=== PATIENT | female | born 1945 | race Caucasian/White ===

== ENCOUNTER 2017-09-01 09:08 | Emergency (ER) | payer MEDICARE ==
[~2017-09-01] VITALS: Ht 160 cm; Wt 90.7 kg
[~2017-09-01 09:08] MED LIST: AMLODIPINE BES2.5 MG PO; AMLODIPINE-ATO1 EAC8; ANASTROZOLE1 MG PO; ATARAX; LEVOTHYROXINE300 MCG PO; MEDROL4 MG/DOSE-; NORCO 5-325 TA1 EACH PO; PRAMIPEXOLE D0.25 MG PO; RAMIPRIL5 MG PO; TOPIRAMATE50 MG PO; TRAMADOL-ACETAMI1 EA PO; ULTRAM50 MG PO
[2017-09-01] MEDS ORDERED: HYDROCODONE/APAP 5MG-325MG TAB PO STA (09:25)
[2017-09-01] MEDS ORDERED: DIAZEPAM INJ 5 MG/ML 2 ML IM ONE (09:30)
== END 2017-09-01 09:53 | disposition home or self-care (01) ==
LOC: FSED 09:08
DX: S46.812A Strain of other muscles, fascia and tendons at shoulder and upper arm level, left arm, initial encounter (principal); M54.6 Pain in thoracic spine; E07.9 Disorder of thyroid, unspecified; Z85.89 Personal history of malignant neoplasm of other organs and systems
CPT/HCPCS: 99284; J3360

== ENCOUNTER → 2017-10-05 | Day surgery (SDC) | payer MEDICARE ==
[2017-10-03 13:40] LABS: BASOPHILS % 0.6 % (0.0-1.0); EOSINOPHILS # (AUTO) 0.5 (0.0-0.4); EOSINOPHILS % 9.4 % (0.0-6.0); HEMATOCRIT 37.7 % (34.2-44.1); HEMOGLOBIN 11.7 g/dL (12.0-16.0); LYMPHOCYTES # (AUTO) 1.2 (1.0-3.2); LYMPHOCYTES % 24.3 % (18.0-39.1); MEAN CORPUSCULAR HEMOGLOBIN 28.4 pg (28-32); MEAN CORPUSCULAR VOLUME 91.5 fL (81-99); MONOCYTES # (AUTO) 0.5 (0.2-0.8); NEUTROPHILS # (AUTO) 2.8 (2.1-6.9); NEUTROPHILS % 56.5 % (38.7-80.0); PLATELET COUNT 155 x10e3/uL (140-360); RED BLOOD COUNT 4.12 x10e6/uL (3.6-5.1); RED CELL DISTRIBUTION WIDTH 14.6 % (11.7-14.4)
[~2017-10-05] MED LIST changes: +BIOTIN PO; +CITRACAL + D E1 EACH PO; +FENTANYL CITRATE/PF 100MCG/2 ML INJ ONE; +IRON PO; +LIDOCAINE HCL 1% 30ML-PF VIAL ONE; +LIDOCAINE HCL 2% LOCAL INJ 5 ML SDV VIAL INJ ONE; +METOPROLOL SUCC25 MG PO; +MIDAZOLAM HCL 2 MG/2 ML VIAL ONE; +MULTIVITAMINS1 EAC8 PO; +PROPOFOL IV EMULSION 10 MG/ML 20 ML VIAL ONE; +SERTRALINE HCL50 MG PO; +TRIAMCINOLONE ACET 40 MG/ML VIAL ONE
== END | disposition home or self-care (01) ==
LOC: OR 05:02
PROVIDERS: ATTEND Physical Medicine & Rehabilitation Pain Medicine
DX: M46.1 Sacroiliitis, not elsewhere classified (principal); M47.27 Other spondylosis with radiculopathy, lumbosacral region; M48.061 Spinal stenosis, lumbar region without neurogenic claudication; M54.12 Radiculopathy, cervical region; I10 Essential (primary) hypertension; I49.3 Ventricular premature depolarization; G47.33 Obstructive sleep apnea (adult) (pediatric); F41.9 Anxiety disorder, unspecified; K44.9 Diaphragmatic hernia without obstruction or gangrene; M19.90 Unspecified osteoarthritis, unspecified site; I25.10 Atherosclerotic heart disease of native coronary artery without angina pectoris; E89.0 Postprocedural hypothyroidism; G62.0 Drug-induced polyneuropathy; T45.1X5S Adverse effect of antineoplastic and immunosuppressive drugs, sequela; I25.2 Old myocardial infarction; Z88.0 Allergy status to penicillin; Z88.2 Allergy status to sulfonamides; Z88.8 Allergy status to other drugs, medicaments and biological substances; Z88.1 Allergy status to other antibiotic agents; Z91.040 Latex allergy status; Z01.810 Encounter for preprocedural cardiovascular examination; Z01.812 Encounter for preprocedural laboratory examination; Z98.84 Bariatric surgery status; Z85.850 Personal history of malignant neoplasm of thyroid; Z92.21 Personal history of antineoplastic chemotherapy; Z92.3 Personal history of irradiation; Z85.3 Personal history of malignant neoplasm of breast
CPT/HCPCS: 36415; 85025; 93005; G0260; J2001 ×2; J2250; J3301; 77002

== ENCOUNTER 2017-11-10 19:54 | Emergency (ER) | payer MEDICARE ==
[~2017-11-10] VITALS: Ht 160 cm; Wt 90.7 kg
[~2017-11-10 19:54] MED LIST changes: -FENTANYL CITRATE/PF 100MCG/2 ML INJ ONE; -LIDOCAINE HCL 1% 30ML-PF VIAL ONE; -LIDOCAINE HCL 2% LOCAL INJ 5 ML SDV VIAL INJ ONE; -MIDAZOLAM HCL 2 MG/2 ML VIAL ONE; -PROPOFOL IV EMULSION 10 MG/ML 20 ML VIAL ONE; -TRIAMCINOLONE ACET 40 MG/ML VIAL ONE
[2017-11-10] MEDS ORDERED: CLONIDINE HCL 0.2 MG TAB PO ONE (20:30)
[2017-11-10] MEDS ORDERED: TRAMADOL HCL 50 MG TAB PO ONE (20:30)
--- NOTE | 2017-11-10 22:20 | Diagnostic Imaging Report ---
SHOULDER 1 VW LT - HOPD, WRIST 2VW LT -HOPD, ELBOW 2 VIEW LT - HOPD, KNEE 2 VIEW LT - HOPD, RIBS UNILAT W/CXR- HOPD, C SPINE 2--3 VEWS - HOPD Comparison: None Clinical history: Status post fall, complaining of left-sided pain Findings: Decreased bone mineralization limits sensitivity. Left shoulder: No acute fracture or dislocation on single provided view. Acromioclavicular and glenohumeral degenerative change. Left ribs, PA chest: No acute displaced rib fracture. With overlie the left chest wall. Heart size is upper limits of normal. No consolidation or edema. No effusion or pneumothorax. Left knee: No acute fracture or dislocation. Tricompartmental degenerative changes, severe of the medial compartment. Chondrocalcinosis and patellar enthesophytes. Left elbow: Moderate degenerative changes of the humeroulnar articulation. No acute fracture or dislocation. Left wrist: Mild radiocarpal and first CMC degenerative changes. Well-corticated ossicle projects posterior to the wrist. Likely chronic posttraumatic or degenerative changes of the base first metacarpal. Cervical spine: Straightening of the normal cervical lordosis with slight reversal at C5-6. Multilevel degenerative changes, severe at C5-6 with disc space narrowing, uncovertebral hypertrophy and disc osteophyte complex. No evidence of acute displaced fracture. Impression: No acute bony abnormality Signed by: Dr Marilin Crane MD on 11/10/2017 10:17 PM
== END 2017-11-10 22:46 | disposition home or self-care (01) ==
LOC: FSED 19:54
DX: M54.2 Cervicalgia (principal); M25.512 Pain in left shoulder; S80.212A Abrasion, left knee, initial encounter; S83.412A Sprain of medial collateral ligament of left knee, initial encounter; S43.52XA Sprain of left acromioclavicular joint, initial encounter; S63.522A Sprain of radiocarpal joint of left wrist, initial encounter; S20.212A Contusion of left front wall of thorax, initial encounter; W18.39XA Other fall on same level, initial encounter; Y92.008 Other place in unspecified non-institutional (private) residence as the place of occurrence of the external cause; I10 Essential (primary) hypertension
CPT/HCPCS: 71101; 72040; 99283

== ENCOUNTER → 2018-07-26 | Day surgery (SDC) | payer MEDICARE ==
[2018-07-25 15:27] LABS: BASOPHILS % 0.8 % (0.0-1.0); EOSINOPHILS # (AUTO) 0.2 (0.0-0.4); EOSINOPHILS % 3.3 % (0.0-6.0); HEMATOCRIT 37.3 % (34.2-44.1); HEMOGLOBIN 11.6 g/dL (12.0-16.0); LYMPHOCYTES # (AUTO) 2.1 (1.0-3.2); LYMPHOCYTES % 43.7 % (18.0-39.1); MEAN CORPUSCULAR HEMOGLOBIN 27.8 pg (28-32); MEAN CORPUSCULAR HGB CONC 31.1 g/dL (31-35); MEAN CORPUSCULAR VOLUME 89.4 fL (81-99); MONOCYTES # (AUTO) 0.5 (0.2-0.8); MONOCYTES % 10.1 % (4.4-11.3); NEUTROPHILS % 41.9 % (38.7-80.0); PLATELET COUNT 216 x10e3/uL (140-360); RED BLOOD COUNT 4.17 x10e6/uL (3.6-5.1); RED CELL DISTRIBUTION WIDTH 14.8 % (11.7-14.4)
[~2018-07-26] MED LIST changes: +BUPIVACAINE 0.25% 30ML SDV INJ ONE; +FENTANYL CITRATE/PF 100MCG/2 ML INJ ONE; +IOPAMIDOL 200 MG/ML 20 ML VIAL IT ONE; +LIDOCAINE HCL 1% 30ML-PF VIAL ONE; +MIDAZOLAM HCL 2 MG/2 ML VIAL ONE; +PROPOFOL IV EMULSION 10 MG/ML 20 ML VIAL ONE
--- OUTSIDE RECORDS SUMMARY | 2018-07-26 05:11 | XMS REPORT ---
Author Author [facility] Address Unknown Phone Unavailable Care Team Providers [employer] Professor Name Role Phone Ny RÍOS Unavailable Unavailable Problems This patient has no known problems. Allergies, Adverse Reactions, Alerts This patient has no known allergies or adverse reactions. Medications This patient has no known medications. Results Test Description Test Time Test Comments Text Results Atomic Results Result Comments RIBS UNILAT W/CXR- HOPD 2017-11-10 22:06:00 [place] [address] Patient Name: DANNY ABERNATHY MR #: [id number] : 1945 Age/Sex: 72/F Req #: [id number] Adm Physician: Ordered by: DINORA RÍOS MD Report #: [id number] Location: [facility] Room/Bed: Procedure: [id number] HOPD/RIBS UNILAT W/CXR- HOPD Exam Date: 11/10/17 Exam Time: 2109 REPORT STATUS: Signed SHOULDER 1 VW LT - HOPD, WRIST 2VW LT -HOPD, ELBOW 2 VIEW LT - HOPD, KNEE 2 VIEW LT - HOPD, RIBS UNILAT W/CXR- HOPD, C SPINE 2--3 VEWS - HOPD Comparison: None Clinical history: Status post fall, complaining of left-sided pain Findings: Decreased bone mineralization limits sensitivity. Left shoulder: No acute fracture or dislocation on single provided view. Acromioclavicular and glenohumeral degenerative change. Left ribs, PA chest: No acute displaced rib fracture. With overlie the left chest wall. Heart size is upper limits of normal. No consolidation or edema. No effusion or pneumothorax. Left knee: No acute fracture or dislocation. Tricompartmental degenerative changes, severe of the medial compartment. Chondrocalcinosis and patellar enthesophytes. Left elbow: Moderate degenerative changes of the humeroulnar articulation. No acute fracture or dislocation. Left wrist: Mild radiocarpal and first CMC degenerative changes. Well-corticated ossicle projects posterior to the wrist. Likely chronic posttraumatic or degenerative changes of the base first metacarpal. Cervical spine: Straightening of the normal cervical lordosis with slight reversal at C5-6. Multilevel degenerative changes, severe at C5-6 with disc space narrowing, uncovertebral hypertrophy and disc osteophyte complex. No evidence of acute displaced fracture. Impression: No acute bony abnor mality Signed by: Dr Gualberto Crane MD on 11/10/2017 10:17 PM Dictated By: GUALBERTO CRANE MD 16 Transcribed By: KAMILAH on 11/10/172216 COPY TO: DINORA RÍOS MD C SPINE 2--3 [facility] 2017-11-10 22:06:00 [place] [address] Patient Name: DANNY ABERNATHY MR #: [id number] : 1945 Age/Sex: 72/F Req #: [id number] Adm Physician: Ordered by: DINORA RÍOS MD Report #: [id number] Location: [facility] Room/Bed: Procedure: [id number] HOPD/C SPINE 2--3 VEWS - HOPD Exam Date: 11/10/17 Exam Time: 2109 REPORT STATUS: Signed SHOULDER 1 VW LT - HOPD, WRIST 2VW LT -HOPD, ELBOW 2 VIEW LT - HOPD, KNEE 2 VIEW LT - HOPD, RIBS UNILAT W/CXR- HOPD, C SPINE 2--3 VEWS - HOPD Comparison: None Clinical history: Status post fall, complaining of left-sided pain Findings: Decreased bone mineralization limits sensitivity. Left shoulder: No acute fracture or dislocation on single provided view. Acromioclavicular and glenohumeral degenerative change. Left ribs, PA chest: No acute displaced rib fracture. With overlie the left chest wall. Heart size is upper limits of normal. No consolidation or edema. No effusion or pneumothorax. Left knee: No acute fracture or dislocation. Tricompartmental degenerative changes, severe of the medial compartment. Chondrocalcinosis and patellar enthesophytes. Left elbow: Moderate degenerative changes of the humeroulnar articulation. No acute fracture or dislocation. Left wrist: Mild radiocarpal and first CMC degenerative changes. Well-corticated ossicle projects posterior to the wrist. Likely chronic posttraumatic or degenerative changes of the base first metacarpal. Cervical spine: Straightening of the normal cervical lordosis with slight reversal at C5-6. Multilevel degenerative changes, severe at C5-6 with disc space narrowing, uncovertebral hypertrophy and disc osteophyte complex. No evidence of acute displaced fracture. Impression: No acute bony abno rmality Signed by: Dr Gualberto Crane MD on 11/10/2017 10:17 PM Dictated By: GUALBERTO CRANE MD 16 Transcribed By: KAMILAH on 11/10/172216 COPY TO: DINORA RÍOS MD KNEE 2 VIEW LT - HOPD 2017-11-10 22:06:00 [place] [address] Patient Name: DANNY ABERNATHY MR #: [id number] : 1945 Age/Sex: 72/F Req #: [id number] [facility] Physician: Ordered by: DINORA RÍOS MD Report #: [id number] Location: [facility] Room/Bed: Procedure: [id number] HOPD/KNEE 2 VIEW LT - HOPD Exam Date: 11/10/17 Exam Time: 2109 REPORT STATUS: Signed SHOULDER 1 VW LT - HOPD, WRIST 2VW LT -HOPD, ELBOW 2 VIEW LT - HOPD, KNEE 2 VIEW LT - HOPD, RIBS UNILAT W/CXR- HOPD, C SPINE 2--3 VEWS - HOPD Comparison: None Clinical history: Status post fall, complaining of left-sided pain Findings: Decreased bone mineralization limits sensitivity. Left shoulder: No acute fracture or dislocation on single provided view. Acromioclavicular and glenohumeral degenerative change. Left ribs, PA chest: No acute displaced rib fracture. With overlie the left chest wall. Heart size is upper limits of normal. No consolidation or edema. No effusion or pneumothorax. Left knee: No acute fracture or dislocation. Tricompartmental degenerative changes, severe of the medial compartment. Chondrocalcinosis and patellar enthesophytes. Left elbow: Moderate degenerative changes of the humeroulnar articulation. No acute fracture or dislocation. Left wrist: Mild radiocarpal and first CMC degenerative changes. Well-corticated ossicle projects posterior to the wrist. Likely chronic posttraumatic or degenerative changes of the base first metacarpal. Cervical spine: Straightening of the normal cervical lordosis with slight reversal at C5-6. Multilevel degenerative changes, severe at C5-6 with disc space narrowing, uncovertebral hypertrophy and disc osteophyte complex. No evidence of acute displaced fracture. Impression: No acute bony abnorma lity Signed by: Dr Gualberto Crane MD on 11/10/2017 10:17 PM Dictated By: GUALBERTO CRANE MD 16 Transcribed By: KAMILAH on 11/10/172216 COPY TO: DINORA RÍOS MD ELBOW 2 VIEW LT - HOPD 2017-11-10 22:06:00 [place] [address] Patient Name: DANNY ABERNATHY MR #: [id number] : 1945 Age/Sex: 72/F Req #: [id number] Adm Physician: Ordered by: DINORA RÍOS MD Report #: [id number] Location: [facility] Room/Bed: Procedure: [id number] HOPD/ELBOW 2 VIEW LT - HOPD Exam Date: 11/10/17 Exam Time: 2109 REPORT STATUS: Signed SHOULDER 1 VW LT - HOPD, WRIST 2VW LT -HOPD, ELBOW 2 VIEW LT - HOPD, KNEE 2 VIEW LT - HOPD, RIBS UNILAT W/CXR- HOPD, C SPINE 2--3 VEWS - HOPD Comparison: None Clinical history: Status post fall, complaining of left-sided pain Findings: Decreased bone mineralization limits sensitivity. Left shoulder: No acute fracture or dislocation on single provided view. Acromioclavicular and glenohumeral degenerative change. Left ribs, PA chest: No acute displaced rib fracture. With overlie the left chest wall. Heart size is upper limits of normal. No consolidation or edema. No effusion or pneumothorax. Left knee: No acute fracture or dislocation. Tricompartmental degenerative changes, severe of the medial compartment. Chondrocalcinosis and patellar enthesophytes. Left elbow: Moderate degenerative changes of the humeroulnar articulation. No acute fracture or dislocation. Left wrist: Mild radiocarpal and first CMC degenerative changes. Well-corticated ossicle projects posterior to the wrist. Likely chronic posttraumatic or degenerative changes of the base first metacarpal. Cervical spine: Straightening of the normal cervical lordosis with slight reversal at C5-6. Multilevel degenerative changes, severe at C5-6 with disc space narrowing, uncovertebral hypertrophy and disc osteophyte complex. No evidence of acute displaced fracture. Impression: No acute bony abnorm ality Signed by: Dr Gualberto Crane MD on 11/10/2017 10:17 PM Dictated By: GUALBERTO CRANE MD 16 Transcribed By: KAMILAH on 11/10/172216 COPY TO: DINORA RÍOS MD WRIST 2VW LT -HOPD 2017-11-10 22:06:00 [place] [address] Patient Name: DANNY ABERNATHY MR #: [id number] : 1945 Age/Sex: 72/F Req #: [id number] Adm Physician: Ordered by: DINORA RÍOS MD Report #: [id number] Location: [facility] Room/Bed: Procedure: [id number] HOPD/WRIST 2VW LT -HOPD Exam Date: 11/10/17 Exam Time: 2109 REPORT STATUS: Signed SHOULDER 1 VW LT - HOPD, WRIST 2VW LT -HOPD, ELBOW 2 VIEW LT - HOPD, KNEE 2 VIEW LT - HOPD, RIBS UNILAT W/CXR- HOPD, C SPINE 2--3 VEWS - HOPD Comparison: None Clinical history: Status post fall, complaining of left-sided pain Findings: Decreased bone mineralization limits sensitivity. Left shoulder: No acute fracture or dislocation on single provided view. Acromioclavicular and glenohumeral degenerative change. Left ribs, PA chest: No acute displaced rib fracture. With overlie the left chest wall. Heart size is upper limits of normal. No consolidation or edema. No effusion or pneumothorax. Left knee: No acute fracture or dislocation. Tricompartmental degenerative changes, severe of the medial compartment. Chondrocalcinosis and patellar enthesophytes. Left elbow: Moderate degenerative changes of the humeroulnar articulation. No acute fracture or dislocation. Left wrist: Mild radiocarpal and first CMC degenerative changes. Well-corticated ossicle projects posterior to the wrist. Likely chronic posttraumatic or degenerative changes of the base first metacarpal. Cervical spine: Straightening of the normal cervical lordosis with slight reversal at C5-6. Multilevel degenerative changes, severe at C5-6 with disc space narrowing, uncovertebral hypertrophy and disc osteophyte complex. No evidence of acute displaced fracture. Impression: No acute bony abnormal ity Signed by: Dr Gualberto Crane MD on 11/10/2017 10:17 PM Dictated By: GUALBERTO CRANE MD 16 Transcribed By: KAMILAH on 11/10/172216 COPY TO: DINORA RÍOS MD SHOULDER 1 [facility] 2017-11-10 22:06:00 [place] [address] Patient Name: DANNY ABERNATHY MR #: [id number] : 1945 Age/Sex: 72/F Req #: [id number] Adm Physician: Ordered by: DINORA RÍOS MD Report #: [id number] Location: [facility] Room/Bed: Procedure: [id number] HOPD/SHOULDER 1 VW LT - HOPD Exam Date: 11/10/17 Exam Time: 2109 REPORT STATUS: Signed SHOULDER 1 VW LT - HOPD, WRIST 2VW LT -HOPD, ELBOW 2 VIEW LT - HOPD, KNEE 2 VIEW LT - HOPD, RIBS UNILAT W/CXR- HOPD, C SPINE 2--3 VEWS - HOPD Comparison: None Clinical history: Status post fall, complaining of left-sided pain Findings: Decreased bone mineralization limits sensitivity. Left shoulder: No acute fracture or dislocation on single provided view. Acromioclavicular and glenohumeral degenerative change. Left ribs, PA chest: No acute displaced rib fracture. With overlie the left chest wall. Heart size is upper limits of normal. No consolidation or edema. No effusion or pneumothorax. Left knee: No acute fracture or dislocation. Tricompartmental degenerative changes, severe of the medial compartment. Chondrocalcinosis and patellar enthesophytes. Left elbow: Moderate degenerative changes of the humeroulnar articulation. No acute fracture or dislocation. Left wrist: Mild radiocarpal and first CMC degenerative changes. Well-corticated ossicle projects posterior to the wrist. Likely chronic posttraumatic or degenerative changes of the base first metacarpal. Cervical spine: Straightening of the normal cervical lordosis with slight reversal at C5-6. Multilevel degenerative changes, severe at C5-6 with disc space narrowing, uncovertebral hypertrophy and disc osteophyte complex. No evidence of acute displaced fracture. Impression: No acute bony abnor mality Signed by: Dr Gualberto Crane MD on 11/10/2017 10:17 PM Dictated By: GUALBERTO CRANE MD 16 Transcribed By: KAMILAH on 11/10/172216 COPY TO: DINORA RÍOS MD
--- OUTSIDE RECORDS SUMMARY | 2018-07-26 05:11 | XMS REPORT | Continuity of Care Document ---
Author Author [facility] Interface Address Unknown Phone Unavailable Problems Problem Status Onset Date Classification Date Reported Comments Source Medications Medication Details Route Status Patient Instructions Ordering Provider Order Date Source Amlodipine Besylate 2.5 Mg Tablet, 2.5 Mg Oral Daily Active 10/03/2017 [facility] Hydrocodone Bit/Acetaminophen ([place] 5-325 Tablet) 1 Each Tablet, 1 Each Oral Daily Active 10/03/2017 [facility] Tramadol Hcl (Ultram) 50 Mg Tablet, 50 Mg Oral As Needed Active 10/03/2017 [facility] Amlodipine/Atorvastatin (Amlodipine-Atorvast 2.5-10 Mg) 1 Each Tablet, Active 06/09/2015 [facility] Anastrozole 1 Mg Tablet, 1 Mg Oral Daily Active 06/09/2015 [facility] Atarax , Every 8 Hours Active 06/09/2015 [facility] Methylprednisolone (Medrol Dose Pack) 4 Mg/Dose Pack Tab, Active 06/09/2015 [facility] Tramadol/Acetaminophen (Tramadol-Acetaminophn 37.5-325) 1 Ea Tab, 1 Tab Oral Active 06/09/2015 [facility] Biotin Daily Active [facility] Calcium Carb & Cit/Vitamin D3 (Citracal + D Er Tablet) 1 Each Tablet.er Daily Active [facility] Iron Daily Active [facility] Levothyroxine Sodium 300 Mcg Tablet Daily Active [facility] Metoprolol Succinate 25 Mg Tab.er.24h Daily Active [facility] Multivitamin (Multivitamins) 1 Each Tablet Daily Active [facility] Pramipexole Di-Hcl (Pramipexole Dihydrochloride) 0.25 Mg Tablet Daily Active [facility] Ramipril 5 Mg Capsule Daily Active [facility] Sertraline Hcl 50 Mg Tablet Bedtime Active [facility] Topiramate 50 Mg Tablet Bedtime Active [facility] Allergies, Adverse Reactions, Alerts Substance Category Reaction Severity Reaction type Status Date Reported Comments Source iodine Unknown Allergy to Substance Active 09/01/2017 [facility] Penicillin Unknown Allergy to Substance Active 09/01/2017 [facility] soap Unknown Allergy to Substance Active 09/01/2017 [facility] Cephalexin Unknown Allergy to Substance Active 09/01/2017 [facility] Povidone-iodine Unknown Allergy to Substance Active 09/01/2017 [facility] Diphenhydramine Unknown Allergy to Substance Active 09/01/2017 [facility] Latex Unknown Allergy to Substance Active 09/01/2017 [facility] MYCINS Unknown Allergy to Substance Active 09/01/2017 [facility] Niacin Unknown Allergy to Substance Active 10/03/2017 [facility] Sulfa (Sulfonamide Antibiotics) Unknown Allergy to Substance Active 11/10/2017 [facility] Immunizations Immunization Date Given Site Status Last Updated Comments Source Results Order Name Results Value Reference Range Date Interpretation Comments Source Automated blood basophil count (count/volume) Automated blood basophil count (count/volume) 0.0 0.0 - 0.1 10/03/2017 [facility] Automated blood basophil count as percentage of total leukocytes Automated blood basophil count as percentage of total leukocytes 0.6 0.0 - 1.0 10/03/2017 [facility] Automated blood eosinophil count Automated blood eosinophil count 0.5 0.0 - 0.4 10/03/2017 [facility] Automated blood eosinophil count as percentage of total leukocytes Automated blood eosinophil count as percentage of total leukocytes 9.4 0.0 - 6.0 10/03/2017 [facility] Automated blood hematocrit (volume fraction) Automated blood hematocrit (volume fraction) 37.7 34.2 - 44.1 10/03/2017 [facility] Automated blood lymphocyte count as percentage ot total leukocytes Automated blood lymphocyte count as percentage ot total leukocytes 24.3 18.0 - 39.1 10/03/2017 [facility] Automated blood monocyte count as percentage of total leukocytes Automated blood monocyte count as percentage of total leukocytes 9.0 4.4 - 11.3 10/03/2017 [facility] Automated blood neutrophil count Automated blood neutrophil count 2.8 2.1 - 6.9 10/03/2017 [facility] Automated blood platelet count (count/volume) Automated blood platelet count (count/volume) 155 140 - 360 10/03/2017 [facility] Automated blood segmented neutrophil count as percentage of total leukocytes Automated blood segmented neutrophil count as percentage of total leukocytes 56.5 38.7 - 80.0 10/03/2017 [facility] Automated erythrocyte mean corpuscular hemoglobin (mass per erythrocyte) Automated erythrocyte mean corpuscular hemoglobin (mass per erythrocyte) 28.4 28 - 32 10/03/2017 [facility] Automated erythrocyte mean corpuscular hemoglobin concentration measurement (mass/volume) Automated erythrocyte mean corpuscular hemoglobin concentration measurement (mass/volume) 31.0 31 - 35 10/03/2017 [facility] Automated erythrocyte mean corpuscular volume Automated erythrocyte mean corpuscular volume 91.5 81 - 99 10/03/2017 [facility] Blood erythrocytes automated count (number/volume) Blood erythrocytes automated count (number/volume) 4.12 3.6 - 5.1 10/03/2017 [facility] Blood hemoglobin measurement (moles/volume) Blood hemoglobin measurement (moles/volume) 11.7 12.0 - 16.0 10/03/2017 [facility] Blood leukocytes automated count (number/volume) Blood leukocytes automated count (number/volume) 5.02 4.8 - 10.8 10/03/2017 [facility] Blood lymphocytes count (number/volume) Blood lymphocytes count (number/volume) 1.2 1.0 - 3.2 10/03/2017 [facility] Blood monocytes automated count (number/volume) Blood monocytes automated count (number/volume) 0.5 0.2 - 0.8 10/03/2017 [facility] Red Cell Distribution Width 14.6 11.7 - 14.4 10/03/2017 [facility] IM GRANULOCYTES % 0.2 0.0 - 1.0 10/03/2017 [facility] Absolute Immature Granulocyte (auto 0.01 0 - 0.1 10/03/2017 [facility] Vital Signs Vital Sign Value Date Comments Source Encounters Location Location Details Encounter Type Encounter Number Reason For Visit Attending Provider ADM Date DC Date Status Source Departed Emergency Room [id number] DOMENIC ELDER MD 09/01/2017 09/01/2017 [facility] Registered Surgical Day Care [id number] JEWELL RIVERA MD 10/05/2017 [facility] Departed Emergency Room [id number] DINORA RÍOS MD 11/10/2017 11/10/2017 [facility] Procedures Procedure Code Date Perfomer Comments Source Inj for sacroiliac jt anesth G0260 10/05/2017 NICOLE [facility]
[2018-07-26 07:45] VITALS: BP 154/76
== END | disposition home or self-care (01) ==
LOC: OR 05:00
PROVIDERS: ATTEND Physical Medicine & Rehabilitation Pain Medicine
DX: M54.81 Occipital neuralgia (principal); M54.12 Radiculopathy, cervical region; M46.1 Sacroiliitis, not elsewhere classified; M47.26 Other spondylosis with radiculopathy, lumbar region; M70.62 Trochanteric bursitis, left hip; M70.61 Trochanteric bursitis, right hip; M25.512 Pain in left shoulder; M48.061 Spinal stenosis, lumbar region without neurogenic claudication; M19.90 Unspecified osteoarthritis, unspecified site; R53.1 Weakness; G47.33 Obstructive sleep apnea (adult) (pediatric); I25.2 Old myocardial infarction; I10 Essential (primary) hypertension; E03.9 Hypothyroidism, unspecified; I25.10 Atherosclerotic heart disease of native coronary artery without angina pectoris; T45.1X1A Poisoning by antineoplastic and immunosuppressive drugs, accidental (unintentional), initial encounter; G62.2 Polyneuropathy due to other toxic agents; E66.01 Morbid (severe) obesity due to excess calories; Z88.0 Allergy status to penicillin; Z88.8 Allergy status to other drugs, medicaments and biological substances; Z88.1 Allergy status to other antibiotic agents; Z91.040 Latex allergy status; Z88.2 Allergy status to sulfonamides; Z91.041 Radiographic dye allergy status; Z85.3 Personal history of malignant neoplasm of breast; Z85.850 Personal history of malignant neoplasm of thyroid; Z98.84 Bariatric surgery status; Z91.81 History of falling
CPT/HCPCS: 36415; 77003; 85025; 93005; J2001; J2250; Q9967

== ENCOUNTER → 2018-08-23 | Day surgery (SDC) | payer MEDICARE ==
[~2018-08-23] MED LIST changes: +DEXAMETHASONE SOD PHOS 10 MG/1 ML VIAL ONE; +LIDOCAINE HCL 2% LOCAL INJ 5 ML SDV VIAL INJ ONE; -MIDAZOLAM HCL 2 MG/2 ML VIAL ONE
--- OUTSIDE RECORDS SUMMARY | 2018-08-23 05:15 | XMS REPORT ---
Author Author [facility] Address Unknown Phone Unavailable Care Team Providers Care [employer] Comment[employer] Name Role Phone Ny RÍOS Unavailable Unavailable Problems This patient has no known problems. Allergies, Adverse Reactions, Alerts This patient has no known allergies or adverse reactions. Medications This patient has no known medications. Results Test Description Test Time Test Comments Text Results Atomic Results Result Comments RIBS UNILAT W/CXR- HOPD 2017-11-10 22:06:00 [place] [address] Patient Name: DANNY ABERNATHY MR #: [id number] : 1945 Age/Sex: 72/F Req #: [id number] Adm Physician: Ordered by: DINORA RÍOS MD Report #: [id number] Location: [facility] Room/Bed: Procedure: [id number] HOPD/RIBS UNILAT W/CXR- HOPD Exam Date: 11/10/17 [...] TO: DINORA RÍOS MD C SPINE 2--3 [facility] 2017-11-10 22:06:00 [place] [address] Patient Name: DANNY ABERNATHY MR #: [id number] : 1945 Age/Sex: 72/F Req #: [id number] Adm Physician: Ordered by: DINORA RÍOS MD Report #: [id number] Location: [facility] Room/Bed: Procedure: [id number] HOPD/C SPINE 2--3 VEWS - HOPD Exam [...] 2 VIEW LT - HOPD 2017-11-10 22:06:00 [place] [address] Patient Name: DANNY ABERNATHY MR #: [id number] : 1945 Age/Sex: 72/F Req #: [id number] [facility] Physician: Ordered by: DINORA RÍOS MD Report #: [id number] Location: [facility] Room/Bed: Procedure: [id number] HOPD/KNEE 2 VIEW LT - HOPD Exam [...] 2 VIEW LT - HOPD 2017-11-10 22:06:00 [place] [address] Patient Name: DANNY ABERNATHY MR #: [id number] : 1945 Age/Sex: 72/F Req #: [id number] Adm Physician: Ordered by: DINORA RÍOS MD Report #: [id number] Location: [facility] Room/Bed: Procedure: [id number] HOPD/ELBOW 2 VIEW LT - HOPD Exam [...] acute bony abnorm ality Signed by: Dr Gaulberto Crane MD on 11/10/2017 10:17 PM Dictated By: GUALBERTO CRANE MD 16 Transcribed By: KAMILAH on 11/10/172216 COPY TO: DINORA RÍOS MD WRIST 2VW LT -HOPD 2017-11-10 22:06:00 [place] [address] Patient Name: DANNY ABERNATHY MR #: [id number] : 1945 Age/Sex: 72/F Req #: [id number] Adm Physician: Ordered by: DINORA RÍOS MD Report #: [id number] Location: [facility] Room/Bed: Procedure: [id number] HOPD/WRIST 2VW LT -HOPD Exam Date: 11/10/17 [...] COPY TO: DINORA RÍOS MD SHOULDER 1 [facility] 2017-11-10 22:06:00 [place] [address] Patient Name: DANNY ABERNATHY MR #: [id number] : 1945 Age/Sex: 72/F Req #: [id number] Adm Physician: Ordered by: DINORA RÍOS MD Report #: [id number] Location: [facility] Room/Bed: Procedure: [id number] HOPD/SHOULDER 1 VW LT - HOPD Exam [...]
[2018-08-23 08:15] VITALS: BP 145/98
== END | disposition home or self-care (01) ==
LOC: OR 05:12
PROVIDERS: ATTEND Physical Medicine & Rehabilitation Pain Medicine
DX: M47.26 Other spondylosis with radiculopathy, lumbar region (principal); M54.12 Radiculopathy, cervical region; M46.1 Sacroiliitis, not elsewhere classified; M48.061 Spinal stenosis, lumbar region without neurogenic claudication; M54.81 Occipital neuralgia; M70.62 Trochanteric bursitis, left hip; M25.512 Pain in left shoulder; M70.61 Trochanteric bursitis, right hip; I89.0 Lymphedema, not elsewhere classified; I25.10 Atherosclerotic heart disease of native coronary artery without angina pectoris; I10 Essential (primary) hypertension; G47.33 Obstructive sleep apnea (adult) (pediatric); I25.2 Old myocardial infarction; D64.9 Anemia, unspecified; F17.200 Nicotine dependence, unspecified, uncomplicated; Z88.0 Allergy status to penicillin; Z88.2 Allergy status to sulfonamides; Z88.8 Allergy status to other drugs, medicaments and biological substances; Z88.1 Allergy status to other antibiotic agents; Z91.041 Radiographic dye allergy status; Z91.040 Latex allergy status; Z68.32 Body mass index [BMI] 32.0-32.9, adult; Z85.850 Personal history of malignant neoplasm of thyroid; Z85.3 Personal history of malignant neoplasm of breast; Z91.81 History of falling
CPT/HCPCS: 64483; 64484; J1100; J2001 ×2; J2704; Q9967; 77003; J3010

== ENCOUNTER → 2019-08-08 | Day surgery (SDC) | payer MEDICARE, OTHER ==
[2019-08-05 14:11] LABS: BASOPHILS % 0.6 % (0.0-1.0); EOSINOPHILS # (AUTO) 0.2 (0.0-0.4); EOSINOPHILS % 2.4 % (0.0-6.0); HEMATOCRIT 37.6 % (34.2-44.1); HEMOGLOBIN 11.1 g/dL (12.0-16.0); LYMPHOCYTES # (AUTO) 1.9 (1.0-3.2); LYMPHOCYTES % 31.1 % (18.0-39.1); MEAN CORPUSCULAR HEMOGLOBIN 25.2 pg (28-32); MEAN CORPUSCULAR HGB CONC 29.5 g/dL (31-35); MEAN CORPUSCULAR VOLUME 85.3 fL (81-99); MONOCYTES # (AUTO) 0.6 (0.2-0.8); MONOCYTES % 9.7 % (4.4-11.3); NEUTROPHILS # (AUTO) 3.5 (2.1-6.9); NEUTROPHILS % 55.9 % (38.7-80.0); PLATELET COUNT 269 x10e3/uL (140-360); RED BLOOD COUNT 4.41 x10e6/uL (3.6-5.1); RED CELL DISTRIBUTION WIDTH 15.9 % (11.7-14.4)
[~2019-08-08] MED LIST changes: +AMLODIPINE BESY10 MG PO; -BUPIVACAINE 0.25% 30ML SDV INJ ONE; +CYMBALTA20 MG PO; +FUROSEMIDE40 MG PO; +METOPROLOL TART25 MG PO; +MIDAZOLAM HCL 2 MG/2 ML VIAL ONE; +TYLENOL WITH C1 EACH PO
[2019-08-08 07:55] VITALS: BP 134/77
== END | disposition home or self-care (01) ==
LOC: OR 05:48
PROVIDERS: ATTEND Physical Medicine & Rehabilitation Pain Medicine
DX: M47.26 Other spondylosis with radiculopathy, lumbar region (principal); M16.12 Unilateral primary osteoarthritis, left hip; M54.81 Occipital neuralgia; M46.1 Sacroiliitis, not elsewhere classified; M25.512 Pain in left shoulder; M54.2 Cervicalgia; G62.9 Polyneuropathy, unspecified; G25.81 Restless legs syndrome; G47.33 Obstructive sleep apnea (adult) (pediatric); I49.1 Atrial premature depolarization; N39.0 Urinary tract infection, site not specified; E03.9 Hypothyroidism, unspecified; I25.10 Atherosclerotic heart disease of native coronary artery without angina pectoris; I25.2 Old myocardial infarction; I10 Essential (primary) hypertension; I83.90 Asymptomatic varicose veins of unspecified lower extremity; K44.9 Diaphragmatic hernia without obstruction or gangrene; F41.9 Anxiety disorder, unspecified; Z88.0 Allergy status to penicillin; Z88.2 Allergy status to sulfonamides; Z88.8 Allergy status to other drugs, medicaments and biological substances; Z88.1 Allergy status to other antibiotic agents; Z91.041 Radiographic dye allergy status; Z91.040 Latex allergy status; Z01.810 Encounter for preprocedural cardiovascular examination; Z01.812 Encounter for preprocedural laboratory examination; Z11.59 Encounter for screening for other viral diseases; Z92.3 Personal history of irradiation; Z85.850 Personal history of malignant neoplasm of thyroid; Z85.3 Personal history of malignant neoplasm of breast
CPT/HCPCS: 36415; 64483; 64484; 85025; 87635; 93005; J1100; J2001 ×2; J2250; J2704; J3010; Q9967; 77003

== ENCOUNTER → 2019-10-10 | Day surgery (SDC) | payer MEDICARE, OTHER ==
[2019-10-07 11:08] LABS: BASOPHILS # (AUTO) 0.1 (0.0-0.1); BASOPHILS % 0.8 % (0.0-1.0); EOSINOPHILS # (AUTO) 0.1 (0.0-0.4); EOSINOPHILS % 1.8 % (0.0-6.0); HEMATOCRIT 37.3 % (34.2-44.1); HEMOGLOBIN 11.3 g/dL (12.0-16.0); LYMPHOCYTES # (AUTO) 2.4 (1.0-3.2); LYMPHOCYTES % 30.7 % (18.0-39.1); MEAN CORPUSCULAR HEMOGLOBIN 25.2 pg (28-32); MEAN CORPUSCULAR HGB CONC 30.3 g/dL (31-35); MEAN CORPUSCULAR VOLUME 83.3 fL (81-99); MONOCYTES # (AUTO) 0.8 (0.2-0.8); MONOCYTES % 10.1 % (4.4-11.3); NEUTROPHILS # (AUTO) 4.4 (2.1-6.9); NEUTROPHILS % 56.2 % (38.7-80.0); PLATELET COUNT 268 x10e3/uL (140-360); RED BLOOD COUNT 4.48 x10e6/uL (3.6-5.1); RED CELL DISTRIBUTION WIDTH 15.9 % (11.7-14.4)
[~2019-10-10] MED LIST changes: -DEXAMETHASONE SOD PHOS 10 MG/1 ML VIAL ONE; +ETOMIDATE 2 MG/ML 10 ML INJ IV ONE; -FENTANYL CITRATE/PF 100MCG/2 ML INJ ONE; +TRIAMCINOLONE ACET 40 MG/ML VIAL ONE
[2019-10-10 07:30] VITALS: BP 111/61
== END | disposition home or self-care (01) ==
LOC: OR 05:40
PROVIDERS: ATTEND Physical Medicine & Rehabilitation Pain Medicine
DX: M47.896 Other spondylosis, lumbar region (principal); M47.26 Other spondylosis with radiculopathy, lumbar region; M70.62 Trochanteric bursitis, left hip; M54.81 Occipital neuralgia; M46.1 Sacroiliitis, not elsewhere classified; M54.2 Cervicalgia; M48.061 Spinal stenosis, lumbar region without neurogenic claudication; Z98.1 Arthrodesis status; G47.33 Obstructive sleep apnea (adult) (pediatric); F41.9 Anxiety disorder, unspecified; I25.2 Old myocardial infarction; I25.10 Atherosclerotic heart disease of native coronary artery without angina pectoris; I10 Essential (primary) hypertension; E03.9 Hypothyroidism, unspecified; Z88.0 Allergy status to penicillin; Z88.2 Allergy status to sulfonamides; Z88.8 Allergy status to other drugs, medicaments and biological substances; Z91.041 Radiographic dye allergy status; Z01.812 Encounter for preprocedural laboratory examination; Z11.59 Encounter for screening for other viral diseases; Z85.3 Personal history of malignant neoplasm of breast; Z85.850 Personal history of malignant neoplasm of thyroid; Z91.81 History of falling
CPT/HCPCS: 36415; 64493; 64494; 64495; 85025; J2001 ×2; J2250; J2704; J3301; Q9967; U0002; 77003

== ENCOUNTER → 2020-07-16 | Day surgery (SDC) | payer MEDICARE ==
[2020-07-13 14:41] LABS: BASOPHILS # (AUTO) 0.1 (0.0-0.1); BASOPHILS % 0.7 % (0.0-1.0); EOSINOPHILS # (AUTO) 0.2 (0.0-0.4); EOSINOPHILS % 2.3 % (0.0-6.0); HEMATOCRIT 39.7 % (34.2-44.1); LYMPHOCYTES # (AUTO) 2.1 (1.0-3.2); LYMPHOCYTES % 25.2 % (18.0-39.1); MEAN CORPUSCULAR HEMOGLOBIN 26.1 pg (28-32); MEAN CORPUSCULAR HGB CONC 30.2 g/dL (31-35); MEAN CORPUSCULAR VOLUME 86.5 fL (81-99); MONOCYTES # (AUTO) 0.7 (0.2-0.8); MONOCYTES % 7.8 % (4.4-11.3); NEUTROPHILS # (AUTO) 5.3 (2.1-6.9); NEUTROPHILS % 63.5 % (38.7-80.0); PLATELET COUNT 265 x10e3/uL (140-360); RED BLOOD COUNT 4.59 x10e6/uL (3.6-5.1); RED CELL DISTRIBUTION WIDTH 18.1 % (11.7-14.4)
[~2020-07-16] MED LIST changes: +BUPIVACAINE 0.25% 30ML SDV ONE; -ETOMIDATE 2 MG/ML 10 ML INJ IV ONE; +FENTANYL CITRATE/PF 100MCG/2 ML INJ ONE; -IOPAMIDOL 200 MG/ML 20 ML VIAL IT ONE; +POVIDONE IODINE 0.05% 0.05 % ML PO ONE
[2020-07-16 06:55] VITALS: BP 130/75
== END | disposition home or self-care (01) ==
LOC: OR 15:18
PROVIDERS: ATTEND Physical Medicine & Rehabilitation Pain Medicine
DX: M46.1 Sacroiliitis, not elsewhere classified (principal); G57.00 Lesion of sciatic nerve, unspecified lower limb; M54.5 Low back pain; Z91.040 Latex allergy status; Z88.0 Allergy status to penicillin; Z88.2 Allergy status to sulfonamides; Z88.8 Allergy status to other drugs, medicaments and biological substances; Z91.048 Other nonmedicinal substance allergy status; I25.10 Atherosclerotic heart disease of native coronary artery without angina pectoris; I10 Essential (primary) hypertension; Z85.3 Personal history of malignant neoplasm of breast; Z85.850 Personal history of malignant neoplasm of thyroid; E03.9 Hypothyroidism, unspecified; J45.909 Unspecified asthma, uncomplicated; E78.5 Hyperlipidemia, unspecified; Z01.812 Encounter for preprocedural laboratory examination; Z20.822 Contact with and (suspected) exposure to COVID-19; Z01.810 Encounter for preprocedural cardiovascular examination
CPT/HCPCS: 20552; 36415; 76000; 77002; 85025; 93005; J2001 ×2; J2250; J2704; J3010; J3301; U0002

== ENCOUNTER → 2020-08-13 | Day surgery (SDC) | payer MEDICARE ==
[~2020-08-13] MED LIST changes: -BUPIVACAINE 0.25% 30ML SDV ONE; +ESCITALOPRAM OX20 MG PO; +FUROSEMIDE20 MG PO; +HYDROCODON-ACE1 EAC8 PO; +IOPAMIDOL 200 MG/ML 20 ML VIAL IT ONE; +MIRAPEX0.25 MG PO; +TORSEMIDE20 MG; +ULTRAM 50MG50 MG PO; +ZOLOFT50 MG PO
[2020-08-13 06:50] VITALS: BP 135/81
== END | disposition home or self-care (01) ==
LOC: OR 06:41
PROVIDERS: ATTEND Physical Medicine & Rehabilitation Pain Medicine
DX: M46.1 Sacroiliitis, not elsewhere classified (principal); M54.16 Radiculopathy, lumbar region; M47.816 Spondylosis without myelopathy or radiculopathy, lumbar region; M70.62 Trochanteric bursitis, left hip; M54.81 Occipital neuralgia; M25.512 Pain in left shoulder; G62.9 Polyneuropathy, unspecified; R93.7 Abnormal findings on diagnostic imaging of other parts of musculoskeletal system; J45.909 Unspecified asthma, uncomplicated; I10 Essential (primary) hypertension; I48.91 Unspecified atrial fibrillation; I25.2 Old myocardial infarction; E03.9 Hypothyroidism, unspecified; E66.01 Morbid (severe) obesity due to excess calories; I25.10 Atherosclerotic heart disease of native coronary artery without angina pectoris; K21.9 Gastro-esophageal reflux disease without esophagitis; Z88.0 Allergy status to penicillin; Z88.2 Allergy status to sulfonamides; Z88.8 Allergy status to other drugs, medicaments and biological substances; Z91.041 Radiographic dye allergy status; Z85.850 Personal history of malignant neoplasm of thyroid; Z92.21 Personal history of antineoplastic chemotherapy; Z85.3 Personal history of malignant neoplasm of breast; Z91.81 History of falling; Z95.0 Presence of cardiac pacemaker; Z98.1 Arthrodesis status
CPT/HCPCS: G0260; J2001 ×2; J2250; J2704; J3010; J3301; Q9967; 77002

== ENCOUNTER → 2020-09-03 | Day surgery (SDC) | payer MEDICARE ==
[~2020-09-03] MED LIST changes: +ASPIRIN81 MG PO; +BUPIVACAINE HCL 0.5% INJ 30 ML VIAL INJ ONE; -IOPAMIDOL 200 MG/ML 20 ML VIAL IT ONE; -TRIAMCINOLONE ACET 40 MG/ML VIAL ONE
[2020-09-03 08:18] VITALS: BP 139/89
== END | disposition home or self-care (01) ==
LOC: OR 05:56
PROVIDERS: ATTEND Physical Medicine & Rehabilitation Pain Medicine
DX: M47.896 Other spondylosis, lumbar region (principal); M46.1 Sacroiliitis, not elsewhere classified; M54.16 Radiculopathy, lumbar region; M70.62 Trochanteric bursitis, left hip; R93.7 Abnormal findings on diagnostic imaging of other parts of musculoskeletal system; I25.10 Atherosclerotic heart disease of native coronary artery without angina pectoris; I10 Essential (primary) hypertension; E03.9 Hypothyroidism, unspecified; I25.2 Old myocardial infarction; G62.0 Drug-induced polyneuropathy; T45.1X5A Adverse effect of antineoplastic and immunosuppressive drugs, initial encounter; M81.0 Age-related osteoporosis without current pathological fracture; I89.0 Lymphedema, not elsewhere classified; Z88.0 Allergy status to penicillin; Z88.2 Allergy status to sulfonamides; Z88.8 Allergy status to other drugs, medicaments and biological substances; Z88.1 Allergy status to other antibiotic agents; Z91.041 Radiographic dye allergy status; Z79.82 Long term (current) use of aspirin; Z95.810 Presence of automatic (implantable) cardiac defibrillator; Z85.3 Personal history of malignant neoplasm of breast; Z85.850 Personal history of malignant neoplasm of thyroid
CPT/HCPCS: 64493; 64494; J2001 ×2; J2250; J2704; J3010; 77003

== ENCOUNTER → 2020-10-27 | Day surgery (SDC) | payer MEDICARE ==
[2020-10-26 10:33] LABS: BASOPHILS % 0.5 % (0.0-1.0); EOSINOPHILS # (AUTO) 0.1 (0.0-0.4); EOSINOPHILS % 1.1 % (0.0-6.0); HEMOGLOBIN 12.3 g/dL (12.0-16.0); LYMPHOCYTES # (AUTO) 2.6 (1.0-3.2); LYMPHOCYTES % 31.1 % (18.0-39.1); MEAN CORPUSCULAR HEMOGLOBIN 26.7 pg (28-32); MEAN CORPUSCULAR HGB CONC 29.3 g/dL (31-35); MEAN CORPUSCULAR VOLUME 91.1 fL (81-99); MONOCYTES # (AUTO) 0.8 (0.2-0.8); MONOCYTES % 9.1 % (4.4-11.3); NEUTROPHILS # (AUTO) 4.7 (2.1-6.9); NEUTROPHILS % 57.7 % (38.7-80.0); PLATELET COUNT 257 x10e3/uL (140-360); RED BLOOD COUNT 4.61 x10e6/uL (3.6-5.1); RED CELL DISTRIBUTION WIDTH 15.8 % (11.7-14.4)
[2020-10-26 11:16] LABS: ALBUMIN 3.6 g/dL (3.5-5.0); ALBUMIN/GLOBULIN RATIO 0.7 (0.8-2.0); ANION GAP 15.8 mmol/L (8-16); CALCIUM 9.4 mg/dL (8.4-10.2); CREATININE, SERUM 1.09 mg/dL (0.57-1.11); POTASSIUM 3.8 mmol/L (3.5-5.1)
[~2020-10-27] VITALS: Ht 160 cm; Wt 136.1 kg
[2020-10-27] VITALS (10 sets, daily range): BP systolic 150–187; BP diastolic 60–84
[~2020-10-27] MED LIST changes: +ACETAMINOPHEN/1 EAC1 PO; +ALPRAZOLAM 0.5 MG TAB ONE; -BUPIVACAINE HCL 0.5% INJ 30 ML VIAL INJ ONE; +DIPHENHYDRAMINE HCL 25 MG CAP ONE; +ENTRESTO 49 MG1 EACH PO; +FAMOTIDINE 20 MG/2 ML VIAL IV ONE; +HEPARIN SOD (PORCINE) 1000 UNIT/ML 30ML ONE; +HEPARIN SOD/SOD CHLORIDE 2,000 ML ONE; +IOPAMIDOL 370 MG/ML 200 ML INFUS..BTL INJ ONE; +LEVOTHYROXINE50 MCG PO; -LIDOCAINE HCL 1% 30ML-PF VIAL ONE; +LIDOCAINE HCL 2% LOCAL 20 ML VIAL ONE; -LIDOCAINE HCL 2% LOCAL INJ 5 ML SDV VIAL INJ ONE; +METHYLPREDNISOLONE SOD SUCC 125 MG/2ML VIAL IV ONE; -POVIDONE IODINE 0.05% 0.05 % ML PO ONE; -PROPOFOL IV EMULSION 10 MG/ML 20 ML VIAL ONE; +SODIUM CHLORIDE 0.9% 1000ML 1,000 ML ONE; +TORSEMIDE100 MG PO; +VERAPAMIL HCL 2.5 MG/ML 2 ML VIAL ONE
== END | disposition home or self-care (01) ==
LOC: CATH LAB 11:16
PROVIDERS: ATTEND Internal Medicine Interventional Cardiology
DX: I25.119 Atherosclerotic heart disease of native coronary artery with unspecified angina pectoris (principal); R94.39 Abnormal result of other cardiovascular function study; I10 Essential (primary) hypertension; E03.9 Hypothyroidism, unspecified; I97.2 Postmastectomy lymphedema syndrome; Z88.0 Allergy status to penicillin; Z88.8 Allergy status to other drugs, medicaments and biological substances; Z88.1 Allergy status to other antibiotic agents; Z91.040 Latex allergy status; Z01.812 Encounter for preprocedural laboratory examination; Z20.822 Contact with and (suspected) exposure to COVID-19; Z68.43 Body mass index [BMI] 50.0-59.9, adult; Z95.0 Presence of cardiac pacemaker; Z82.49 Family history of ischemic heart disease and other diseases of the circulatory system; Z82.3 Family history of stroke
CPT/HCPCS: 36415; 76937; 80053; 83880; 85025; 93454; C1769; C1887; C1894; J1644; J2001; J2250; J3010; J7030; Q9967; U0002; 99152

== ENCOUNTER → 2020-12-31 | Day surgery (SDC) | payer MEDICARE ==
[2020-12-30 10:03] LABS: BASOPHILS # (AUTO) 0.1 (0.0-0.1); BASOPHILS % 0.7 % (0.0-1.0); EOSINOPHILS # (AUTO) 0.2 (0.0-0.4); EOSINOPHILS % 1.7 % (0.0-6.0); HEMATOCRIT 42.8 % (34.2-44.1); LYMPHOCYTES # (AUTO) 3.2 (1.0-3.2); LYMPHOCYTES % 35.2 % (18.0-39.1); MEAN CORPUSCULAR HEMOGLOBIN 26.6 pg (28-32); MEAN CORPUSCULAR HGB CONC 30.4 g/dL (31-35); MEAN CORPUSCULAR VOLUME 87.5 fL (81-99); MONOCYTES # (AUTO) 0.8 (0.2-0.8); MONOCYTES % 8.6 % (4.4-11.3); NEUTROPHILS # (AUTO) 4.9 (2.1-6.9); PLATELET COUNT 318 x10e3/uL (140-360); RED BLOOD COUNT 4.89 x10e6/uL (3.6-5.1); RED CELL DISTRIBUTION WIDTH 15.9 % (11.7-14.4)
[~2020-12-31] MED LIST changes: -ALPRAZOLAM 0.5 MG TAB ONE; -DIPHENHYDRAMINE HCL 25 MG CAP ONE; -FAMOTIDINE 20 MG/2 ML VIAL IV ONE; -FENTANYL CITRATE/PF 100MCG/2 ML INJ ONE; -HEPARIN SOD (PORCINE) 1000 UNIT/ML 30ML ONE; -HEPARIN SOD/SOD CHLORIDE 2,000 ML ONE; +IOPAMIDOL 200 MG/ML 20 ML VIAL IT ONE; -IOPAMIDOL 370 MG/ML 200 ML INFUS..BTL INJ ONE; +LIDOCAINE HCL 1% 30ML-PF VIAL ONE; -LIDOCAINE HCL 2% LOCAL 20 ML VIAL ONE; +LIDOCAINE HCL 2% LOCAL INJ 5 ML SDV VIAL INJ ONE; -METHYLPREDNISOLONE SOD SUCC 125 MG/2ML VIAL IV ONE; -MIDAZOLAM HCL 2 MG/2 ML VIAL ONE; +POVIDONE IODINE 0.05% 0.05 % ML PO ONE; +PROPOFOL IV EMULSION 10 MG/ML 20 ML VIAL ONE; -SODIUM CHLORIDE 0.9% 1000ML 1,000 ML ONE; +TRIAMCINOLONE ACET 40 MG/ML VIAL ONE; -VERAPAMIL HCL 2.5 MG/ML 2 ML VIAL ONE
[2020-12-31 08:00] VITALS: BP 149/87
== END | disposition home or self-care (01) ==
LOC: OR 05:54
PROVIDERS: ATTEND Physical Medicine & Rehabilitation Pain Medicine
DX: M46.1 Sacroiliitis, not elsewhere classified (principal); M47.896 Other spondylosis, lumbar region; M54.16 Radiculopathy, lumbar region; M70.62 Trochanteric bursitis, left hip; M54.81 Occipital neuralgia; M81.0 Age-related osteoporosis without current pathological fracture; M25.512 Pain in left shoulder; R93.7 Abnormal findings on diagnostic imaging of other parts of musculoskeletal system; Z98.1 Arthrodesis status; E03.9 Hypothyroidism, unspecified; J45.909 Unspecified asthma, uncomplicated; I25.10 Atherosclerotic heart disease of native coronary artery without angina pectoris; I10 Essential (primary) hypertension; K21.9 Gastro-esophageal reflux disease without esophagitis; I25.2 Old myocardial infarction; G62.2 Polyneuropathy due to other toxic agents; T45.1X5A Adverse effect of antineoplastic and immunosuppressive drugs, initial encounter; F32.A Depression, unspecified; Z88.0 Allergy status to penicillin; Z88.2 Allergy status to sulfonamides; Z88.8 Allergy status to other drugs, medicaments and biological substances; Z88.1 Allergy status to other antibiotic agents; Z91.041 Radiographic dye allergy status; Z01.812 Encounter for preprocedural laboratory examination; Z20.822 Contact with and (suspected) exposure to COVID-19; Z68.43 Body mass index [BMI] 50.0-59.9, adult; Z85.3 Personal history of malignant neoplasm of breast; Z85.850 Personal history of malignant neoplasm of thyroid; Z91.81 History of falling
CPT/HCPCS: 36415; 85025; G0260; J2001 ×2; J2704; J3301; Q9967; U0002; 77002

== ENCOUNTER → 2021-02-18 | Day surgery (SDC) | payer MEDICARE ==
[2021-02-15 14:42] LABS: BASOPHILS % 0.5 % (0.0-1.0); EOSINOPHILS # (AUTO) 0.2 (0.0-0.4); HEMATOCRIT 42.3 % (34.2-44.1); HEMOGLOBIN 12.6 g/dL (12.0-16.0); LYMPHOCYTES # (AUTO) 2.7 (1.0-3.2); LYMPHOCYTES % 36.7 % (18.0-39.1); MEAN CORPUSCULAR HEMOGLOBIN 26.7 pg (28-32); MEAN CORPUSCULAR HGB CONC 29.8 g/dL (31-35); MEAN CORPUSCULAR VOLUME 89.6 fL (81-99); MONOCYTES # (AUTO) 0.6 (0.2-0.8); MONOCYTES % 7.5 % (4.4-11.3); NEUTROPHILS # (AUTO) 3.9 (2.1-6.9); NEUTROPHILS % 52.9 % (38.7-80.0); PLATELET COUNT 254 x10e3/uL (140-360); RED BLOOD COUNT 4.72 x10e6/uL (3.6-5.1); RED CELL DISTRIBUTION WIDTH 17.2 % (11.7-14.4)
[~2021-02-18] MED LIST changes: +FENTANYL CITRATE/PF 100MCG/2 ML INJ ONE; -IOPAMIDOL 200 MG/ML 20 ML VIAL IT ONE
[2021-02-18 07:41] VITALS: BP 174/85
== END | disposition home or self-care (01) ==
LOC: OR 06:21
PROVIDERS: ATTEND Physical Medicine & Rehabilitation Pain Medicine
DX: M46.1 Sacroiliitis, not elsewhere classified (principal); M47.816 Spondylosis without myelopathy or radiculopathy, lumbar region; M54.16 Radiculopathy, lumbar region; M70.62 Trochanteric bursitis, left hip; M54.81 Occipital neuralgia; G89.29 Other chronic pain; G47.33 Obstructive sleep apnea (adult) (pediatric); J45.909 Unspecified asthma, uncomplicated; K21.9 Gastro-esophageal reflux disease without esophagitis; I10 Essential (primary) hypertension; E03.9 Hypothyroidism, unspecified; I25.10 Atherosclerotic heart disease of native coronary artery without angina pectoris; I25.2 Old myocardial infarction; M81.0 Age-related osteoporosis without current pathological fracture; G62.2 Polyneuropathy due to other toxic agents; T45.1X5A Adverse effect of antineoplastic and immunosuppressive drugs, initial encounter; Z88.4 Allergy status to anesthetic agent; Z88.0 Allergy status to penicillin; Z88.2 Allergy status to sulfonamides; Z88.8 Allergy status to other drugs, medicaments and biological substances; Z88.1 Allergy status to other antibiotic agents; Z91.041 Radiographic dye allergy status; Z01.810 Encounter for preprocedural cardiovascular examination; Z01.812 Encounter for preprocedural laboratory examination; Z20.822 Contact with and (suspected) exposure to COVID-19; Z79.899 Other long term (current) drug therapy; Z95.0 Presence of cardiac pacemaker; Z85.3 Personal history of malignant neoplasm of breast; Z85.850 Personal history of malignant neoplasm of thyroid
CPT/HCPCS: 36415; 85025; 93005; G0260; J2001 ×2; J2704; J3010; J3301; U0002; 77003

== ENCOUNTER → 2021-03-18 | Day surgery (SDC) | payer MEDICARE ==
[2021-03-16 09:02] LABS: BASOPHILS % 0.6 % (0.0-1.0); EOSINOPHILS # (AUTO) 0.2 (0.0-0.4); EOSINOPHILS % 2.2 % (0.0-6.0); HEMOGLOBIN 12.7 g/dL (12.0-16.0); LYMPHOCYTES # (AUTO) 2.9 (1.0-3.2); LYMPHOCYTES % 41.3 % (18.0-39.1); MEAN CORPUSCULAR HEMOGLOBIN 27.1 pg (28-32); MEAN CORPUSCULAR HGB CONC 29.5 g/dL (31-35); MEAN CORPUSCULAR VOLUME 91.7 fL (81-99); MONOCYTES # (AUTO) 0.5 (0.2-0.8); MONOCYTES % 7.8 % (4.4-11.3); NEUTROPHILS # (AUTO) 3.3 (2.1-6.9); PLATELET COUNT 263 x10e3/uL (140-360); RED BLOOD COUNT 4.69 x10e6/uL (3.6-5.1); RED CELL DISTRIBUTION WIDTH 17.9 % (11.7-14.4)
[~2021-03-18] MED LIST changes: +MIDAZOLAM HCL 2 MG/2 ML VIAL ONE
[2021-03-18 07:05] VITALS: BP 154/109
== END | disposition home or self-care (01) ==
LOC: OR 05:47
PROVIDERS: ATTEND Physical Medicine & Rehabilitation Pain Medicine
DX: M47.896 Other spondylosis, lumbar region (principal); M46.1 Sacroiliitis, not elsewhere classified; M54.16 Radiculopathy, lumbar region; M70.62 Trochanteric bursitis, left hip; M54.81 Occipital neuralgia; M25.512 Pain in left shoulder; G62.2 Polyneuropathy due to other toxic agents; T45.1X5A Adverse effect of antineoplastic and immunosuppressive drugs, initial encounter; M81.0 Age-related osteoporosis without current pathological fracture; G47.33 Obstructive sleep apnea (adult) (pediatric); I25.10 Atherosclerotic heart disease of native coronary artery without angina pectoris; I25.2 Old myocardial infarction; I11.0 Hypertensive heart disease with heart failure; I50.9 Heart failure, unspecified; E03.9 Hypothyroidism, unspecified; E78.5 Hyperlipidemia, unspecified; J45.909 Unspecified asthma, uncomplicated; K21.9 Gastro-esophageal reflux disease without esophagitis; F32.A Depression, unspecified; Z88.1 Allergy status to other antibiotic agents; Z88.0 Allergy status to penicillin; Z88.2 Allergy status to sulfonamides; Z88.8 Allergy status to other drugs, medicaments and biological substances; Z91.041 Radiographic dye allergy status; Z91.040 Latex allergy status; Z01.812 Encounter for preprocedural laboratory examination; Z20.822 Contact with and (suspected) exposure to COVID-19; Z79.899 Other long term (current) drug therapy; Z98.84 Bariatric surgery status; Z95.0 Presence of cardiac pacemaker; Z85.3 Personal history of malignant neoplasm of breast; Z85.850 Personal history of malignant neoplasm of thyroid; Z91.81 History of falling; Z98.1 Arthrodesis status
CPT/HCPCS: 36415; 64493; 64494; 64495; 85025; J2001 ×2; J2250; J2704; J3010; J3301; U0002; 77003

== ENCOUNTER 2021-06-15 03:32 | Inpatient (IN) | payer MEDICARE ==
[~2021-06-15] VITALS: Ht 160 cm; Wt 136.1 kg
[2021-06-15] VITALS (7 sets, daily range): BP systolic 128–187; BP diastolic 76–93
[~2021-06-15 03:32] MED LIST changes: -FENTANYL CITRATE/PF 100MCG/2 ML INJ ONE; -LIDOCAINE HCL 1% 30ML-PF VIAL ONE; -LIDOCAINE HCL 2% LOCAL INJ 5 ML SDV VIAL INJ ONE; -MIDAZOLAM HCL 2 MG/2 ML VIAL ONE; -POVIDONE IODINE 0.05% 0.05 % ML PO ONE; -PROPOFOL IV EMULSION 10 MG/ML 20 ML VIAL ONE; -TRIAMCINOLONE ACET 40 MG/ML VIAL ONE
[2021-06-15 03:59] LABS: BASOPHILS % 0.3 % (0.0-1.0); HEMATOCRIT 42.1 % (34.2-44.1); LYMPHOCYTES # (AUTO) 0.3 (1.0-3.2); LYMPHOCYTES % 2.3 % (18.0-39.1); MEAN CORPUSCULAR HEMOGLOBIN 28.6 pg (28-32); MEAN CORPUSCULAR HGB CONC 30.9 g/dL (31-35); MEAN CORPUSCULAR VOLUME 92.5 fL (81-99); MONOCYTES # (AUTO) 0.9 (0.2-0.8); MONOCYTES % 7.3 % (4.4-11.3); NEUTROPHILS # (AUTO) 10.7 (2.1-6.9); NEUTROPHILS % 89.6 % (38.7-80.0); PLATELET COUNT 214 x10e3/uL (140-360); RED BLOOD COUNT 4.55 x10e6/uL (3.6-5.1)
[2021-06-15 04:15] LABS: ALBUMIN 3.5 g/dL (3.5-5.0); ALBUMIN/GLOBULIN RATIO 0.7 (0.8-2.0); CALCIUM 9.6 mg/dL (8.4-10.2); CREATININE, SERUM 1.08 mg/dL (0.57-1.11)
[2021-06-15] MEDS ORDERED: LACTATED RINGER'S 500 ML IV ONE ×3 (04:15→05:00)
[2021-06-15] MEDS ORDERED: LEVOFLOXACIN 750MG/D5W 150ML 150 ML IV STA (04:25)
[2021-06-15] MEDS ORDERED: METRONIDAZOLE 750MG/NS 150ML 150 ML IV STA (04:25)
[2021-06-15] MEDS ORDERED: LACTATED RINGER'S 1,000 ML INJ ONE (04:30)
[2021-06-15] MEDS ORDERED: METRONIDAZOLE 500MG/NS 100ML 100 ML IV ONE ×2 (04:30→04:39)
[2021-06-15] MEDS ORDERED: KETOROLAC TROMETHAMINE 30 MG/ML VIAL IV STA (07:40)
[2021-06-15 08:02] LABS: CLARITY,URINE CLOUDY (CLEAR); COLOR,URINE YELLOW (YELLOW); KETONES,URINE NEGATIVE (NEGATIVE); LEUKOCYTE ESTERASE ,URINE NEGATIVE (NEGATIVE); NITRITE,URINE NEGATIVE (NEGATIVE); PROTEIN,URINE DIPSTICK 1+ (NEGATIVE)
[2021-06-15] MEDS ORDERED: SODIUM CHLORIDE 0.9% 1000ML 1,000 ML IV SCH (08:15)
[2021-06-15] MEDS ORDERED: MEROPENEM 1 GM in SODIUM CHLORIDE 0.9% 100 ML IV ONE (08:15)
[2021-06-15] MEDS ORDERED: ONDANSETRON HCL INJ 2MG/ML 2ML 2 MG/ML VIAL IV PRN (08:15)
[2021-06-15] MEDS ORDERED: Vancomycin IV 1 GM in SODIUM CHLORIDE 0.9% 250ML 250 ML IV ONE (08:30)
[2021-06-15 08:46] LABS: BACTERIA,URINE MANY /HPF; EPITHELIAL CELLS,URINE FEW /LPF; RBC,URINE 0-5 /HPF (0-5); WBC,URINE (MAN) 0-5 /HPF (0-5)
[2021-06-15] MEDS: Morphine 2mg Syringe 2 MG/ML SYR IV PRN ×2 (13:33→21:21)
[2021-06-15] MEDS ORDERED: HYDRALAZINE HCL 20 MG/ML VIAL IV PRN (13:45)
[2021-06-15] MEDS ORDERED: DOCUSATE SODIUM 100 MG CAP PO PRN (13:45)
[2021-06-15] MEDS ORDERED: BENZONATATE 100 MG CAP PO PRN (13:45)
[2021-06-15] MEDS ORDERED: ACETAMINOPHEN 325 MG TAB PO PRN (13:45)
[2021-06-15] MEDS ORDERED: SIMETHICONE 80 MG CHEW PO PRN (13:45)
[2021-06-15] MEDS ORDERED: LIDOCAINE 4% PATCH TP PRN (13:45)
[2021-06-15] MEDS ORDERED: DEXTROSE 50% SYRINGE 50 ML IV PRN (13:45)
[2021-06-15] MEDS ORDERED: ALBUTEROL/IPRATROPIUM 3 ML NEB NEB PRN (13:45)
[2021-06-15] MEDS: POTASSIUM CHLORIDE 20 MEQ TAB CR PO PRN (16:27)
[2021-06-15] MEDS ORDERED: PROMETHAZINE HC25 M1 PO (19:07)
[2021-06-15] MEDS ORDERED: CYMBALTA30 MG (19:07)
[2021-06-15] MEDS ORDERED: FUROSEMIDE40 MG PO (19:07)
[2021-06-15] MEDS ORDERED: MELATONIN 5 MG TABLET PO PRN (21:00)
[2021-06-16] VITALS (8 sets, daily range): BP systolic 132–165; BP diastolic 80–109
[2021-06-16] MEDS: Morphine 2mg Syringe 2 MG/ML SYR IV PRN ×3 (01:17→15:30)
[2021-06-16] MEDS ORDERED: DONNATAL/LIDOCAINE/MAALOX 30 ML SUSP PO ONE ×2 (02:15→02:45)
[2021-06-16 06:18] LABS: BASOPHILS % 0.2 % (0.0-1.0); EOSINOPHILS % 0.4 % (0.0-6.0); HEMATOCRIT 35.5 % (34.2-44.1); HEMOGLOBIN 11.1 g/dL (12.0-16.0); LYMPHOCYTES # (AUTO) 1.1 (1.0-3.2); LYMPHOCYTES % 13.1 % (18.0-39.1); MEAN CORPUSCULAR HEMOGLOBIN 28.8 pg (28-32); MEAN CORPUSCULAR HGB CONC 31.3 g/dL (31-35); MEAN CORPUSCULAR VOLUME 92.2 fL (81-99); MONOCYTES # (AUTO) 0.5 (0.2-0.8); MONOCYTES % 5.5 % (4.4-11.3); NEUTROPHILS # (AUTO) 6.6 (2.1-6.9); NEUTROPHILS % 80.4 % (38.7-80.0); PLATELET COUNT 178 x10e3/uL (140-360); RED BLOOD COUNT 3.85 x10e6/uL (3.6-5.1)
[2021-06-16 06:56] LABS: ALBUMIN/GLOBULIN RATIO 0.8 (0.8-2.0); ANION GAP 14.3 mmol/L (8-16); CALCIUM 8.4 mg/dL (8.4-10.2); CREATININE, SERUM 0.9 mg/dL (0.57-1.11); MAGNESIUM 2.1 MG/DL (1.3-2.1); POTASSIUM 3.3 mmol/L (3.5-5.1)
[2021-06-16] MEDS: PANTOPRAZOLE SOD 40 MG TABEC PO SCH (08:30)
[2021-06-16] MEDS: POTASSIUM CHLORIDE 20 MEQ TAB CR PO PRN (09:06)
[2021-06-16] MEDS: ONDANSETRON HCL INJ 2MG/ML 2ML 2 MG/ML VIAL IV PRN ×2 (09:09→15:30)
[2021-06-16] MEDS ORDERED: CARVEDILOL 3.125 MG TAB PO SCH (09:30)
[2021-06-16] MEDS: LEVOTHYROXINE SODIUM 125 MCG TAB PO SCH (12:54)
[2021-06-16] MEDS: METOCLOPRAMIDE HCL 10 MG/2ML VIAL IV SCH ×2 (12:54→22:18)
[2021-06-16] MEDS: METOPROLOL SUCCINATE 25 MG TAB XL PO SCH (16:34)
[2021-06-17] VITALS (7 sets, daily range): BP systolic 148–178; BP diastolic 66–81
[2021-06-17] MEDS: ONDANSETRON HCL INJ 2MG/ML 2ML 2 MG/ML VIAL IV PRN ×3 (00:42→18:23)
[2021-06-17] MEDS: Morphine 2mg Syringe 2 MG/ML SYR IV PRN ×3 (00:42→20:26)
[2021-06-17 02:07] LABS: % IRON SATURATION 25 % (15-50); IRON 102 ug/dL (50-170); TOTAL IRON BINDING CAPACITY 402 ug/dL (261-478); TRANSFERRIN 287 mg/dL (180-382)
[2021-06-17 05:46] LABS: BASOPHILS % 0.6 % (0.0-1.0); EOSINOPHILS # (AUTO) 0.1 (0.0-0.4); HEMATOCRIT 34.6 % (34.2-44.1); HEMOGLOBIN 10.6 g/dL (12.0-16.0); LYMPHOCYTES # (AUTO) 1.5 (1.0-3.2); LYMPHOCYTES % 29.6 % (18.0-39.1); MEAN CORPUSCULAR HEMOGLOBIN 28.5 pg (28-32); MEAN CORPUSCULAR HGB CONC 30.6 g/dL (31-35); MONOCYTES # (AUTO) 0.4 (0.2-0.8); MONOCYTES % 7.4 % (4.4-11.3); NEUTROPHILS # (AUTO) 3.1 (2.1-6.9); PLATELET COUNT 192 x10e3/uL (140-360); RED BLOOD COUNT 3.72 x10e6/uL (3.6-5.1)
[2021-06-17 06:16] LABS: ALBUMIN 2.9 g/dL (3.5-5.0); ALBUMIN/GLOBULIN RATIO 0.7 (0.8-2.0); ANION GAP 10.8 mmol/L (8-16); CALCIUM 8.2 mg/dL (8.4-10.2); CREATININE, SERUM 0.93 mg/dL (0.57-1.11); POTASSIUM 3.8 mmol/L (3.5-5.1)
[2021-06-17] MEDS: LEVOTHYROXINE SODIUM 125 MCG TAB PO SCH (06:20)
[2021-06-17] MEDS: PANTOPRAZOLE SOD 40 MG TABEC PO SCH (06:20)
[2021-06-17] MEDS: METOCLOPRAMIDE HCL 10 MG/2ML VIAL IV SCH ×3 (06:20→21:28)
[2021-06-17] MEDS ORDERED: TORSEMIDE 10 MG TAB PO SCH (09:00)
[2021-06-17] MEDS ORDERED: LEVOTHYROXINE SODIUM 50 MCG TAB PO SCH (09:00)
[2021-06-17] MEDS: METOPROLOL SUCCINATE 25 MG TAB XL PO SCH ×2 (09:09→17:10)
[2021-06-17] MEDS ORDERED: METOCLOPRAMIDE HCL 10 MG/2ML VIAL IV ONE (12:45)
[2021-06-17] MEDS ORDERED: MIDAZOLAM HCL 2 MG/2 ML VIAL ONE (12:51)
[2021-06-17] MEDS ORDERED: FENTANYL CITRATE/PF 100MCG/2 ML INJ ONE (12:51)
[2021-06-17] MEDS ORDERED: PROPOFOL IV EMULSION 10 MG/ML 20 ML VIAL ONE (12:59)
[2021-06-17] MEDS: TORSEMIDE 10 MG TAB PO SCH (17:25)
[2021-06-18 00:03] VITALS: BP 118/64
[2021-06-18] MEDS: Morphine 2mg Syringe 2 MG/ML SYR IV PRN (02:10)
[2021-06-18 04:00] VITALS: BP 156/88
[2021-06-18] MEDS: LEVOTHYROXINE SODIUM 125 MCG TAB PO SCH (05:18)
[2021-06-18] MEDS: METOCLOPRAMIDE HCL 10 MG/2ML VIAL IV SCH (05:18)
[2021-06-18 06:13] LABS: BASOPHILS # (AUTO) 0.1 (0.0-0.1); BASOPHILS % 0.8 % (0.0-1.0); EOSINOPHILS # (AUTO) 0.1 (0.0-0.4); EOSINOPHILS % 1.8 % (0.0-6.0); HEMATOCRIT 38.6 % (34.2-44.1); HEMOGLOBIN 12.1 g/dL (12.0-16.0); LYMPHOCYTES # (AUTO) 2.2 (1.0-3.2); LYMPHOCYTES % 35.3 % (18.0-39.1); MEAN CORPUSCULAR HEMOGLOBIN 28.9 pg (28-32); MEAN CORPUSCULAR HGB CONC 31.3 g/dL (31-35); MEAN CORPUSCULAR VOLUME 92.1 fL (81-99); MONOCYTES # (AUTO) 0.5 (0.2-0.8); MONOCYTES % 7.7 % (4.4-11.3); NEUTROPHILS # (AUTO) 3.3 (2.1-6.9); NEUTROPHILS % 53.4 % (38.7-80.0); PLATELET COUNT 182 x10e3/uL (140-360); RED BLOOD COUNT 4.19 x10e6/uL (3.6-5.1); RED CELL DISTRIBUTION WIDTH 16.8 % (11.7-14.4)
[2021-06-18 06:42] LABS: ALBUMIN 3.2 g/dL (3.5-5.0); ALBUMIN/GLOBULIN RATIO 0.7 (0.8-2.0); ANION GAP 16.5 mmol/L (8-16); CALCIUM 8.8 mg/dL (8.4-10.2); CREATININE, SERUM 1.04 mg/dL (0.57-1.11); POTASSIUM 3.5 mmol/L (3.5-5.1)
[2021-06-18 08:10] VITALS: BP 143/69
[2021-06-18 08:14] VITALS: BP 143/69
[2021-06-18] MEDS: PANTOPRAZOLE SOD 40 MG TABEC PO SCH (08:30)
[2021-06-18] MEDS ORDERED: CYANOCOBALAMIN INJ 1,000 MCG/ML VIAL IM SCH (09:00)
[2021-06-18] MEDS ORDERED: FOLIC ACID 1 MG TAB PO SCH (09:00)
[2021-06-18] MEDS: METOPROLOL SUCCINATE 25 MG TAB XL PO SCH (09:37)
[2021-06-18] MEDS: TORSEMIDE 10 MG TAB PO SCH (09:37)
[2021-06-18 11:45] VITALS: BP 136/82
[2021-06-18] MEDS ORDERED: METOCLOPRAMIDE HCL 10 MG TAB PO SCH (14:00)
[2021-06-29] MEDS ORDERED: CIPROFLOXACIN500 MG PO (08:06)
[2021-06-29] MEDS ORDERED: FOLIC ACID0.4 MG PO (08:06)
[2021-06-29] MEDS ORDERED: METRONIDAZOLE500 MG PO (08:06)
[2021-06-29] MEDS ORDERED: [UNRECOGNIZED DRUG - OTHER] PO (08:06)
[2021-06-29] MEDS ORDERED: PROTONIX20 MG PO (08:06)
== END 2021-06-18 13:45 | disposition home or self-care (01) | DRG 871 ==
LOC: ER 03:49 → ERHOLD 08:06 → MED/SURG3 12:07
PROVIDERS: ADMIT Internal Medicine; ATTEND Internal Medicine
PROC: 3E03329 Introduction of Other Anti-infective into Peripheral Vein, Percutaneous Approach (ICD-10-PCS; 2021-06-15)
PROC: 0DB48ZX Excision of Esophagogastric Junction, Via Natural or Artificial Opening Endoscopic, Diagnostic (ICD-10-PCS; 2021-06-17)
PROC: 0DB78ZX Excision of Stomach, Pylorus, Via Natural or Artificial Opening Endoscopic, Diagnostic (ICD-10-PCS; 2021-06-17)
PROC: 0DB68ZZ Excision of Stomach, Via Natural or Artificial Opening Endoscopic (ICD-10-PCS; principal; 2021-06-17 16:04)
DX: A41.9 Sepsis, unspecified organism (principal); G93.41 Metabolic encephalopathy; K83.09 Other cholangitis; Z68.43 Body mass index [BMI] 50.0-59.9, adult; I50.22 Chronic systolic (congestive) heart failure; I11.0 Hypertensive heart disease with heart failure; E03.9 Hypothyroidism, unspecified; F41.9 Anxiety disorder, unspecified; Z88.1 Allergy status to other antibiotic agents; Z88.0 Allergy status to penicillin; Z88.2 Allergy status to sulfonamides; Z88.8 Allergy status to other drugs, medicaments and biological substances; Z91.048 Other nonmedicinal substance allergy status; E66.01 Morbid (severe) obesity due to excess calories; Z95.0 Presence of cardiac pacemaker; R07.89 Other chest pain; R74.01 Elevation of levels of liver transaminase levels; Z90.49 Acquired absence of other specified parts of digestive tract; Z98.84 Bariatric surgery status; D64.9 Anemia, unspecified; K20.90 Esophagitis, unspecified without bleeding; K44.9 Diaphragmatic hernia without obstruction or gangrene; K29.70 Gastritis, unspecified, without bleeding; K31.7 Polyp of stomach and duodenum; Z20.822 Contact with and (suspected) exposure to COVID-19; K83.8 Other specified diseases of biliary tract
CPT/HCPCS: 36415; 43239; 70450; 71045; 74176; 76700; 80053; 81001; 82607; 82746; 83540; 83605; 83690; 83735; 83880; 84145; 84466; 84484; 85025; 85045; 87040; 87086; 88305; 88312; 93005; 94799; 99251; 99284; J0360; J1885; J2185; J2250; J2270; J2405; J2765; J3010; J3370; J3420; J7030; J7050; J7120; J7121; U0002

== ENCOUNTER → 2021-07-01 | Day surgery (SDC) | payer MEDICARE ==
[~2021-07-01] MED LIST changes: +CIPROFLOXACIN500 MG PO; +CYMBALTA30 MG; +FOLIC ACID0.4 MG PO; +LIDOCAINE HCL 1% 30ML-PF VIAL ONE; +LIDOCAINE HCL 2% LOCAL INJ 5 ML SDV VIAL INJ ONE; +METRONIDAZOLE500 MG PO; +MIDAZOLAM HCL 2 MG/2 ML VIAL ONE; +POVIDONE IODINE 0.05% 0.05 % ML PO ONE; +PROMETHAZINE HC25 M1 PO; +PROPOFOL IV EMULSION 10 MG/ML 20 ML VIAL ONE; +PROTONIX20 MG PO; +TRIAMCINOLONE ACET 40 MG/ML VIAL ONE; +[UNRECOGNIZED DRUG - OTHER] PO
[2021-07-01 08:00] VITALS: BP 126/79
== END | disposition home or self-care (01) ==
LOC: OR 05:23
PROVIDERS: ATTEND Physical Medicine & Rehabilitation Pain Medicine
DX: M70.72 Other bursitis of hip, left hip (principal); M70.71 Other bursitis of hip, right hip; M47.816 Spondylosis without myelopathy or radiculopathy, lumbar region; M46.1 Sacroiliitis, not elsewhere classified; M54.16 Radiculopathy, lumbar region; M25.512 Pain in left shoulder; M54.81 Occipital neuralgia; Z98.1 Arthrodesis status; J45.909 Unspecified asthma, uncomplicated; G47.33 Obstructive sleep apnea (adult) (pediatric); I10 Essential (primary) hypertension; I11.0 Hypertensive heart disease with heart failure; I50.9 Heart failure, unspecified; I25.10 Atherosclerotic heart disease of native coronary artery without angina pectoris; E66.01 Morbid (severe) obesity due to excess calories; E03.9 Hypothyroidism, unspecified; F41.9 Anxiety disorder, unspecified; Z95.0 Presence of cardiac pacemaker; Z91.041 Radiographic dye allergy status; Z88.8 Allergy status to other drugs, medicaments and biological substances; Z88.0 Allergy status to penicillin; Z88.2 Allergy status to sulfonamides; Z88.1 Allergy status to other antibiotic agents; Z01.812 Encounter for preprocedural laboratory examination; Z20.822 Contact with and (suspected) exposure to COVID-19; Z79.899 Other long term (current) drug therapy; Z85.850 Personal history of malignant neoplasm of thyroid; Z85.3 Personal history of malignant neoplasm of breast; Z91.81 History of falling
CPT/HCPCS: 20610; 77002; J2001 ×2; J2250; J2704; J3301; U0002; 77003

== ENCOUNTER → 2022-01-20 | Day surgery (SDC) | payer MEDICARE ==
[2022-01-18 10:51] LABS: BASOPHILS % 0.7 % (0.0-1.0); EOSINOPHILS # (AUTO) 0.1 (0.0-0.4); EOSINOPHILS % 1.5 % (0.0-6.0); HEMATOCRIT 42.2 % (34.2-44.1); HEMOGLOBIN 13.5 g/dL (12.0-16.0); LYMPHOCYTES # (AUTO) 2.3 (1.0-3.2); LYMPHOCYTES % 38.3 % (18.0-39.1); MEAN CORPUSCULAR HEMOGLOBIN 29.7 pg (28-32); MEAN CORPUSCULAR VOLUME 92.7 fL (81-99); MONOCYTES # (AUTO) 0.4 (0.2-0.8); MONOCYTES % 7.4 % (4.4-11.3); NEUTROPHILS # (AUTO) 3.1 (2.1-6.9); NEUTROPHILS % 51.9 % (38.7-80.0); PLATELET COUNT 211 x10e3/uL (140-360); RED BLOOD COUNT 4.55 x10e6/uL (3.6-5.1)
[~2022-01-20] MED LIST changes: +DEXAMETHASONE SOD PHOS 10 MG/1 ML VIAL ONE; +KETAMINE HCL INJ 50 MG/ML 10 ML VIAL ONE; -MIDAZOLAM HCL 2 MG/2 ML VIAL ONE; -TRIAMCINOLONE ACET 40 MG/ML VIAL ONE
[2022-01-20 07:45] VITALS: BP 136/85
== END | disposition home or self-care (01) ==
LOC: OR 07:04
PROVIDERS: ATTEND Physical Medicine & Rehabilitation Pain Medicine
DX: M54.12 Radiculopathy, cervical region (principal); M46.1 Sacroiliitis, not elsewhere classified; M54.16 Radiculopathy, lumbar region; G47.33 Obstructive sleep apnea (adult) (pediatric); J44.9 Chronic obstructive pulmonary disease, unspecified; I10 Essential (primary) hypertension; E03.9 Hypothyroidism, unspecified; I25.10 Atherosclerotic heart disease of native coronary artery without angina pectoris; I25.2 Old myocardial infarction; M81.0 Age-related osteoporosis without current pathological fracture; T45.1X5A Adverse effect of antineoplastic and immunosuppressive drugs, initial encounter; G62.2 Polyneuropathy due to other toxic agents; M19.90 Unspecified osteoarthritis, unspecified site; Z88.0 Allergy status to penicillin; Z88.2 Allergy status to sulfonamides; Z88.8 Allergy status to other drugs, medicaments and biological substances; Z88.1 Allergy status to other antibiotic agents; Z91.041 Radiographic dye allergy status; Z01.810 Encounter for preprocedural cardiovascular examination; Z01.812 Encounter for preprocedural laboratory examination; Z79.899 Other long term (current) drug therapy; Z85.3 Personal history of malignant neoplasm of breast; Z85.850 Personal history of malignant neoplasm of thyroid; M47.896 Other spondylosis, lumbar region; Z91.81 History of falling; Z95.0 Presence of cardiac pacemaker
CPT/HCPCS: 36415; 64479; 85025; 93005; J1100; J2001 ×2; J2704; 77003

== ENCOUNTER 2022-05-26 00:08 | Inpatient (IN) | payer MEDICARE ==
[~2022-05-26] VITALS: Ht 160 cm; Wt 122.5 kg
[~2022-05-26 00:08] MED LIST changes: -DEXAMETHASONE SOD PHOS 10 MG/1 ML VIAL ONE; -KETAMINE HCL INJ 50 MG/ML 10 ML VIAL ONE; -LIDOCAINE HCL 1% 30ML-PF VIAL ONE; -LIDOCAINE HCL 2% LOCAL INJ 5 ML SDV VIAL INJ ONE; -POVIDONE IODINE 0.05% 0.05 % ML PO ONE; -PROPOFOL IV EMULSION 10 MG/ML 20 ML VIAL ONE
[2022-05-26] MEDS ORDERED: ONDANSETRON HCL INJ 2MG/ML 2ML 2 MG/ML VIAL IV STA (00:42)
[2022-05-26] MEDS ORDERED: SODIUM CHLORIDE 0.9% 1000ML 1,000 ML IV SCH (00:45)
[2022-05-26 01:18] LABS: BASOPHILS # (AUTO) 0.1 (0.0-0.1); BASOPHILS % 0.5 % (0.0-1.0); HEMATOCRIT 44.2 % (34.2-44.1); HEMOGLOBIN 14.2 g/dL (12.0-16.0); LYMPHOCYTES # (AUTO) 0.5 (1.0-3.2); LYMPHOCYTES % 3.2 % (18.0-39.1); MEAN CORPUSCULAR HGB CONC 32.1 g/dL (31-35); MEAN CORPUSCULAR VOLUME 93.4 fL (81-99); MONOCYTES # (AUTO) 0.8 (0.2-0.8); MONOCYTES % 5.8 % (4.4-11.3); NEUTROPHILS # (AUTO) 12.8 (2.1-6.9); NEUTROPHILS % 89.9 % (38.7-80.0); PLATELET COUNT 231 x10e3/uL (140-360); RED BLOOD COUNT 4.73 x10e6/uL (3.6-5.1); RED CELL DISTRIBUTION WIDTH 16.1 % (11.7-14.4)
[2022-05-26 01:38] LABS: ALBUMIN 3.2 g/dL (3.5-5.0); ALBUMIN/GLOBULIN RATIO 0.6 (0.8-2.0); ANION GAP 21.4 mmol/L (8-16); CALCIUM 9.4 mg/dL (8.4-10.2); CREATININE, SERUM 1.06 mg/dL (0.57-1.11); POTASSIUM 3.4 mmol/L (3.5-5.1)
[2022-05-26 01:39] LABS: CLARITY,URINE CLEAR (CLEAR); COLOR,URINE AMBER (YELLOW); KETONES,URINE NEGATIVE (NEGATIVE); LEUKOCYTE ESTERASE ,URINE NEGATIVE (NEGATIVE); NITRITE,URINE NEGATIVE (NEGATIVE); PROTEIN,URINE DIPSTICK 2+ (NEGATIVE); URINE UROBILINOGEN >=8 mg/dL (0.2 - 1)
[2022-05-26 01:44] LABS: CREATINE KINASE MB 0.5 ng/mL (0-5.0)
[2022-05-26 01:45] LABS: BACTERIA,URINE FEW /HPF; EPITHELIAL CELLS,URINE MODERATE /LPF; MUCUS,URINE FEW (RARE); RBC,URINE 0-5 /HPF (0-5); WBC,URINE (MAN) 0-5 /HPF (0-5)
[2022-05-26] MEDS: SODIUM CHLORIDE 0.9% 1000ML 1,000 ML IV SCH ×3 (02:00→23:54)
[2022-05-26] MEDS: LEVOFLOXACIN 500MG/D5W 100ML IV SCH (02:00)
[2022-05-26] MEDS: Morphine 4mg INJECTION 4 MG/ML INJ IV PRN ×3 (02:22→21:07)
[2022-05-26] MEDS: ONDANSETRON HCL INJ 2MG/ML 2ML 2 MG/ML VIAL IV PRN ×4 (02:23→21:07)
[2022-05-26] MEDS ORDERED: PROMETHAZINE 12.5MG/ NACL 0.9% 12.5 MG/50 ML BAG IV ONE (07:15)
[2022-05-26 15:32] VITALS: BP 131/91
[2022-05-26 15:33] VITALS: BP 131/91
[2022-05-26 15:34] VITALS: BP 131/91
[2022-05-26 20:00] VITALS: BP 112/73
[2022-05-27] VITALS (8 sets, daily range): BP systolic 137–188; BP diastolic 79–102
[2022-05-27] MEDS: LEVOFLOXACIN 500MG/D5W 100ML IV SCH (02:09)
[2022-05-27] MEDS: ONDANSETRON HCL INJ 2MG/ML 2ML 2 MG/ML VIAL IV PRN (03:54)
[2022-05-27] MEDS: Morphine 4mg INJECTION 4 MG/ML INJ IV PRN ×2 (03:55→21:18)
[2022-05-27 08:12] LABS: BASOPHILS % 0.5 % (0.0-1.0); EOSINOPHILS % 0.4 % (0.0-6.0); HEMATOCRIT 39.6 % (34.2-44.1); HEMOGLOBIN 12.2 g/dL (12.0-16.0); LYMPHOCYTES # (AUTO) 1.5 (1.0-3.2); LYMPHOCYTES % 19.3 % (18.0-39.1); MEAN CORPUSCULAR HGB CONC 30.8 g/dL (31-35); MEAN CORPUSCULAR VOLUME 97.5 fL (81-99); MONOCYTES # (AUTO) 0.5 (0.2-0.8); MONOCYTES % 6.9 % (4.4-11.3); NEUTROPHILS # (AUTO) 5.5 (2.1-6.9); NEUTROPHILS % 72.5 % (38.7-80.0); PLATELET COUNT 180 x10e3/uL (140-360); RED BLOOD COUNT 4.06 x10e6/uL (3.6-5.1); RED CELL DISTRIBUTION WIDTH 16.4 % (11.7-14.4)
[2022-05-27 08:34] LABS: ALANINE AMINOTRANSFERASE 114 IU/L (0-55); ALBUMIN 2.6 g/dL (3.5-5.0); ALBUMIN/GLOBULIN RATIO 0.6 (0.8-2.0); ALKALINE PHOSPHATASE 353 IU/L (40-150); ANION GAP 16.6 mmol/L (8-16); BLOOD UREA NITROGEN 15 mg/dL (7-26); BUN/CREATININE RATIO 17 (6-25); CARBON DIOXIDE 22 mmol/L (22-29); CHLORIDE 104 mmol/L (98-107); GLUCOSE 71 mg/dL (74-118); POTASSIUM 4.6 mmol/L (3.5-5.1); SODIUM 138 mmol/L (136-145)
[2022-05-27 09:21] LABS: LIPASE < 4 U/L (8-78)
[2022-05-27] MEDS ORDERED: FENTANYL CITRATE/PF 100MCG/2 ML INJ ONE (11:40)
[2022-05-27] MEDS ORDERED: MIDAZOLAM HCL 2 MG/2 ML VIAL ONE (11:40)
[2022-05-27] MEDS ORDERED: CYMBALTA30 MG (12:33)
[2022-05-27] MEDS ORDERED: ASA-BUTALB-CAF1 EACH PO (12:36)
[2022-05-27] MEDS ORDERED: ROPINIROLE HC0.25 MG PO (12:37)
[2022-05-27] MEDS ORDERED: METOPROLOL TART25 MG PO (12:39)
[2022-05-27] MEDS ORDERED: ENTRESTO 24 MG1 EACH PO (12:40)
[2022-05-27] MEDS ORDERED: ENALAPRILAT IV INJ 1.25 MG/ML VIAL IV ONE (13:30)
[2022-05-27] MEDS ORDERED: INDOMETHACIN 50 MG SUPP.RECT RC ONE (15:59)
[2022-05-27] MEDS ORDERED: IOPAMIDOL 610MG/1ML 300 MG/ML VIAL IV ONE (16:02)
[2022-05-27] MEDS ORDERED: SUGAMMADEX SODIUM 200 MG/2 ML VIAL IV ONE (16:30)
[2022-05-27 17:06] LABS: INR 0.97; PROTHROMBIN TIME 13.4 seconds (11.9-14.5)
[2022-05-27] MEDS: SODIUM CHLORIDE 0.9% 1000ML 1,000 ML IV SCH (19:24)
[2022-05-28 01:00] VITALS: BP 146/83
[2022-05-28] MEDS: Morphine 4mg INJECTION 4 MG/ML INJ IV PRN ×2 (01:28→04:15)
[2022-05-28] MEDS: LEVOFLOXACIN 500MG/D5W 100ML IV SCH (01:38)
[2022-05-28 05:05] VITALS: BP 167/98
[2022-05-28 08:35] VITALS: BP 170/98
[2022-05-28 09:14] VITALS: BP 170/98
[2022-05-28] MEDS ORDERED: HYDRALAZINE HCL 20 MG/ML VIAL IV PRN (10:00)
[2022-05-28] MEDS ORDERED: LEVOTHYROXINE SODIUM 100 MCG TAB PO SCH (11:00)
[2022-05-28 11:03] LABS: BASOPHILS % 0.7 % (0.0-1.0); EOSINOPHILS # (AUTO) 0.1 (0.0-0.4); EOSINOPHILS % 2.4 % (0.0-6.0); HEMATOCRIT 44.7 % (34.2-44.1); HEMOGLOBIN 13.3 g/dL (12.0-16.0); LYMPHOCYTES # (AUTO) 1.4 (1.0-3.2); LYMPHOCYTES % 24.9 % (18.0-39.1); MEAN CORPUSCULAR HGB CONC 29.8 g/dL (31-35); MEAN CORPUSCULAR VOLUME 100.7 fL (81-99); MONOCYTES # (AUTO) 0.4 (0.2-0.8); MONOCYTES % 7.3 % (4.4-11.3); NEUTROPHILS # (AUTO) 3.7 (2.1-6.9); NEUTROPHILS % 64.4 % (38.7-80.0); PLATELET COUNT 127 x10e3/uL (140-360); RED BLOOD COUNT 4.44 x10e6/uL (3.6-5.1)
[2022-05-28 11:14] LABS: ALBUMIN 2.8 g/dL (3.5-5.0); ALBUMIN/GLOBULIN RATIO 0.6 (0.8-2.0); ANION GAP 19.6 mmol/L (8-16); CALCIUM 9.2 mg/dL (8.4-10.2); CREATININE, SERUM 0.87 mg/dL (0.57-1.11); POTASSIUM 4.6 mmol/L (3.5-5.1)
[2022-05-28 11:44] VITALS: BP 134/96
[2022-05-28] MEDS ORDERED: SODIUM BICARBONATE 650 MG TAB PO SCH (13:00)
[2022-05-28] MEDS ORDERED: ROPINIROLE HCL 0.25 MG TAB PO SCH (15:00)
[2022-05-28] MEDS ORDERED: VALSARTAN/SACUBITRIL 24MG/26MG 1 EA TAB PO SCH (17:00)
[2022-05-28] MEDS ORDERED: METOPROLOL SUCCINATE 25 MG TAB XL PO SCH (17:00)
[2022-05-29] MEDS ORDERED: DULOXETINE HCL 30 MG DELAYED RELEASE PO SCH (09:00)
== END 2022-05-28 13:17 | disposition home or self-care (01) | DRG 445 ==
LOC: ER 00:15 → ERHOLD 01:56 → IMCU 15:11 → MED/SURG3 22:38
PROVIDERS: ADMIT Internal Medicine; ATTEND Internal Medicine
PROC: BF101ZZ Fluoroscopy of Bile Ducts using Low Osmolar Contrast (ICD-10-PCS; 2022-05-27)
PROC: 0FC98ZZ Extirpation of Matter from Common Bile Duct, Via Natural or Artificial Opening Endoscopic (ICD-10-PCS; principal; 2022-05-27 15:47)
DX: K80.51 Calculus of bile duct without cholangitis or cholecystitis with obstruction (principal); I50.22 Chronic systolic (congestive) heart failure; Z68.42 Body mass index [BMI] 45.0-49.9, adult; I11.0 Hypertensive heart disease with heart failure; E78.5 Hyperlipidemia, unspecified; Z20.822 Contact with and (suspected) exposure to COVID-19; I25.2 Old myocardial infarction; J45.909 Unspecified asthma, uncomplicated; E03.9 Hypothyroidism, unspecified; F41.9 Anxiety disorder, unspecified; F32.A Depression, unspecified; R79.89 Other specified abnormal findings of blood chemistry; Z95.0 Presence of cardiac pacemaker; E66.01 Morbid (severe) obesity due to excess calories; Z90.49 Acquired absence of other specified parts of digestive tract; Z85.3 Personal history of malignant neoplasm of breast; Z85.850 Personal history of malignant neoplasm of thyroid; Z92.21 Personal history of antineoplastic chemotherapy; Z92.3 Personal history of irradiation; Z98.84 Bariatric surgery status; Z88.0 Allergy status to penicillin; Z88.2 Allergy status to sulfonamides
CPT/HCPCS: 36415; 43260; 71046; 74176; 74328; 80053; 81001; 82550; 82553; 83690; 84484; 85025; 85610; 93005; 93306; 94799; 99284; J1956; J2250; J2270; J2405; J2550; J7030